=== PATIENT | female | born 1960 | race Caucasian/White ===

== ENCOUNTER 2018-04-03 06:53 | Inpatient (IN) | payer BC ==
--- NOTE | 2018-03-21 22:05 | HP ---
HISTORY AND PHYSICAL: DATE OF ADMISSION: 04/03/18 DATE OF OFFICE VISIT: 03/21/18 SURGEON: Sophie Aldridge MD * (DICTATED BY MIRANDA MCKEON) PROCEDURE: Left total knee arthroplasty. CHIEF COMPLAINT: Left knee pain. HISTORY OF PRESENT ILLNESS: Ms. Tabor is a 58-year-old female with end-stage osteoarthritis of the left knee. She has failed conservative treatment and elected to proceed with a left total knee arthroplasty. PAST MEDICAL HISTORY: History of lung cancer. PAST SURGICAL HISTORY: x2, wisdom teeth extraction, tonsillectomy, gastric sleeve, right lung lobectomy, and hernia repair. CURRENT MEDICATIONS: 1. Levocetirizine dihydrochloride 5 mg daily. 2. Vitamin D 2000 units daily. 3. Calcium. 4. Flintstones Multivitamin. 5. Clobetasol propionate 0.05%. ALLERGIES: To PENICILLIN, LATEX, ALEVE, and NICKEL. FAMILY HISTORY: Cancer. SOCIAL HISTORY: She is a 58-year-old female. She lives with her . She does not smoke or use drugs. Uses alcohol rarely. REVIEW OF SYSTEMS: A complete 14-point review of systems was reviewed with the patient, it was all negative or noncontributory. She denies any history of DVT , PE, hepatitis, HIV, or anesthesia problems. PHYSICAL EXAMINATION GENERAL: She is well developed, well nourished, in no acute distress. VITAL SIGNS: She stands 65 inches tall, weighs 240 pounds. Her blood pressure is 123/82 and her heart rate is 72. HEENT: Normocephalic, atraumatic. NECK: Supple. No palpable lymph nodes. PULMONARY: The lungs are clear to auscultation bilaterally. CARDIO: Regular rate and rhythm. Strong S1 and S2. ABDOMEN: Soft, nontender, and nondistended. NEUROLOGICAL: She is alert and oriented x3. MUSCULOSKELETAL: Left lower extremity, the skin is intact. There are no open wounds or abrasions. She has a moderate joint effusion. Range of motion is 10 to 125 degrees of flexion. She has 2+ dorsalis pedis pulse, intact sensation, and her lower extremity muscle group strengths are intact at 5/5. ASSESSMENT AND PLAN: Ms. Tabor is a 58-year-old female with end-stage osteoarthritis of the left knee. She has failed conservative treatment and elected to proceed with a left total knee arthroplasty, which is scheduled for 04/03/[address] Aldridge discussed the risks and benefits of surgery at today's visit and all of her questions were answered. She will follow up with Dr. Aldridge 2 weeks after the surgery. MIRANDA MCKEON [id number]/[facility] #: [id number] [facility]ITALMoustapha
[~2018-04-03 06:53] MED LIST: Tranexamic Acid 1,000 MG in NS 0.9% 50 ML* (outpatient use) IV SCH
[2018-04-03] MEDS ORDERED: Bupivacaine 0.5% SDV PF* 30ML VIAL ONE (06:54)
[2018-04-03] MEDS ORDERED: ROPIVACAINE 5 MG/ML 30 ML BTL (0.5%) ONE (06:54)
[2018-04-03] MEDS ORDERED: Propofol* 10 MG/ML 20 ML BTL IV PUSH ONE ×2 (06:54→10:41)
[2018-04-03] MEDS ORDERED: Lidocaine 2% PF * 5 ML VIAL ONE (06:54)
[2018-04-03] MEDS ORDERED: fentaNYL* 50 MCG/ML 2 ML VIAL (100 MCG VIAL) ONE (06:56)
[2018-04-03] MEDS ORDERED: Midazolam* 1 MG/ML 2 ML VIAL (2 MG) ONE ×3 (06:56→09:55)
[2018-04-03] MEDS ORDERED: KETAMINE HCL* 50 MG/ML 10 ML VIAL ONE (06:57)
--- OUTSIDE RECORDS SUMMARY | 2018-04-03 06:58 | XMS REPORT ---
:1960 External Reference #:[id number] Author Organization [employer] Address [address] [place] [address] [place] [address] Phone [phone] Care Team Providers Name Role Phone Marsha Marsh MD Primary Care Physician Unavailable Payers Type Date Identification Numbers Payment Provider Subscriber Health Maintenance Effective: Policy Number: [facility] Tj Marx (O) 05/27/2014 [id number] Expires: 05/26/2016 PayID: [id number] [address] [address] CongJEANNIE pantoja [address] Medigap Part B Policy Number: [id number] BS Facets Tj Tabor PayID: [id number] [address] [address] [place] [address] Problems Date Description Provider Status Onset: 05/14/2011 Morbid obesity Lily Doyle, N.P. Active Onset: 07/09/2011 Allergic rhinitis Lily Doyle, N.P. Active Onset: 07/09/2011 Asthma without status asthmaticus Lily Doyle, N.P. Active Onset: 07/22/2011 Impaired fasting glycaemia Lily Doyle, N.P. 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 Active Family History Date Family Member(s) Problem(s) Comments Father Prostate Cancer Smoker age 77 Mother Osteoporosis HTN age 80 Children 2 1 Son - Healthy age 29 1 Son - Healthy age 26 Siblings 6 3 Brothers - Healthy, 1 brother with prostate cancer at age 40 - doing well 3 Sisters - 1 Sister with diabetes but otherwise healthy, 1 Sister thyroid Cancer Social History Type Date Description Comments Marital Status Lives With Occupation [employer] ETOH Use Denies alcohol use Smoking Patient has never smoked Recreational Drug Use Denies Drug Use Exercise Type/Frequency Exercises regularly lifting light weights. ; still at [facility], Allergies, Adverse Reactions, Alerts Date Description Reaction Status Severity Comments 05/14/2011 Penicillins Hives active 05/14/2011 Aleve Bloody Nose active 06/14/2014 Latex active 11/03/2014 Nickel active Medications Medication Date Status Form Strength Qnty SIG Indications Ordering Provider Levocetirizine 06/14 Active Tablets 5mg 30tab 1 by mouth Lily Dihydrochloride s every day Varn, N.P. Vitamin D3 High Active Capsules 2000Units 1 by mouth Unknown Potency /0000 every day Calcium Chew Active 1200mg one by Unknown /0000 mouth every day Flintstones Active Chewtabs 60mg 2 by mouth Unknown Complete /0000 every day Clobetasol Active Cream 0.05% 60gm use on Lily Propionate / affected Varn, N.P. area 2x daily for 2 weeks then 2 week off Glucometer 04/16 Hx 1unit to use to E11. s test blood Varn, N.P. sugars Glucose Test 04/16 Hx 100un Test every E11. its am and 2 Varn, N.P. hrs after dinner Lancets 04/16 Hx 100un Test blood E11. its sugar Varn, N.P. every am and 2 hours after dinner Metformin HCL 04/16 Hx Tablets 500mg 30tab take 05/28 E11. s tablet by Varn, N.P. mouth at dinner for 1 week then boost to a full tablet Hydrocodone 04/05 Hx Solution 7.5-325mg 240ml 10ml-15ml Lily Bitartrate/Aceta /2015 /15ML by mouth B. 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 05/30 needed pain Zithromax Z-River 08/09 Hx Tablets 250mg 6tabs take as 461.8 directed MD Lucas - 08/31 Temovate 07/19 Hx Cream 0.05% 30gm apply twice Varn, N.P. daily as needed Ventolin HFA 07/09 Hx Aerosol 108(90Bas 1inha 1 to 2 493.90 Marsha e) mcg/ac ler inhalation Cotton, - s before M.D. 07/26 Azithromycin 05/14 Hx Tablets 250mg 6tabs two tabs 461.9 Marsha day one, Cotton, - one daily M.D. 05/24 till Fluticasone 05/14 Hx Suspension 50mcg/Act 1Mont 1 spray 461.9 Marsha h each Cotton, - nostril M.D. 05/28 daily needed Alavert Hx Tablets 10mg once daily Unknown /0000 as needed - 06/14 Advil Allergy Hx Tablets 200mg once daily Unknown Sinus /0000 as needed - 06/14 Centrum Flavor Hx Chewtabs 2 daily Unknown Burst /0000 Vitamin B 12 Hx Lozenges 500mcg by mouth Unknown /0000 every day Medications Administered in Office Medication Date Status Form Strength Qnty SIG Indications Ordering Provider Synvisc Or Administered Injection Sophie Synvisc-One Tom Aldridge M.D. Injection 1 MG Synvisc Or Administered Injection Sophie Synvisc-One Tom Aldridge M.D. Injection 1 MG Synvisc Or Administered Injection Sophie Synvisc-One 018 Tacos Aldridge Injection 1 MG Synvisc Or Administered Injection Sophie Synvisc-One 018 Tacos Aldridge Injection 1 MG Synvisc Or Administered Injection Sophie Synvisc-One Tom Aldridge M.D. Injection 1 MG Synvisc Or Administered Injection Sophie Synvisc-One 018 Bharati Aldridge. Injection 1 MG Synvisc Or Administered Injection Zaneb Synvisc-One 017 MD Dinora Injection 1 MG Synvisc Or Administered Injection Zaneb Synvisc-One 017 MD Dinora Injection 1 MG Synvisc Or Administered Injection Sophie Synvisc-One 017 Carissa AldridgeDServando Injection 1 MG Synvisc Or Administered Injection Sophie Synvisc-One 017 Yamilet Aldridge.DServando Injection 1 MG Synvisc Or Administered Injection Sophie Synvisc-One 017 Yamilet Aldridge.Moustapha. Injection 1 MG Synvisc Or Administered Injection Sophie Synvisc-One Brandi Aldridge M.D. Injection 1 MG Synvisc Or Administered Injection Sophie Synvisc-One 016 Tacos Aldridge Injection 1 MG Synvisc Or Administered Injection Sophie Synvisc-One Yamilet Bhagat.Tito Injection 1 MG Synvisc Or Administered Injection Sophie Synvisc-One Yamilet Bhagat.Tito Injection 1 MG Synvisc Or Administered Injection Sophie Synvisc-One Carissa BhagatDServando Injection 1 MG Synvisc Or Administered Injection Sophie Synvisc-One Yamilet Bhagat.Tito Injection 1 MG Synvisc Or Administered Injection Sophie Synvisc-One 016 Yamilet Aldridge.DServando Injection 1 MG Synvisc Or Administered Injection Sophie Synvisc-One Yamilet Bhagat.D. Injection 1 MG Synvisc Or Administered Injection Sophie Synvisc-One 016 Yamilet Aldridge.D. Injection 1 MG Synvisc Or Administered Injection Sophie Synvisc-One 016 Yamilet Aldridge.D. Injection 1 MG Synvisc Or Administered Injection Sophie Synvisc-One 016 Yamilet Aldridge.D. Injection 1 MG Synvisc Or Administered Injection Renata Synvisc-One 016 Bordoni, POLYMERIZATION KETTLE OPERATOR Injection 1 MG Synvisc Or Administered Injection Renata Synvisc-One 016 Bordoni, POLYMERIZATION KETTLE OPERATOR Injection 1 MG Depomedrol Administered Injection Sophie 80MG 015 Tacos Aldridge Depomedrol Administered Injection Sophie 80MG 015 Tacos Aldridge Immunizations CPT Code Status Date Vaccine Lot # [id number] Given 03/07/2018 Influenza Virus Vaccine, Quadrivalent, Split, [id number] Preservative Free 08773 Given 03/02/2017 Influenza Virus Vaccine, Quadrivalent, Split, Preservative Free [id number] Given 12/21/2016 Tdap - Tetanus/Diptheria/Acellular Pertussis [id number] Given 03/21/2016 Flu Vaccine NOS Q2037 Given 03/04/2015 Fluvirin Im 3Yrs And Older Q2037 Given 08/09/2014 Fluvirin Im 3Yrs And Older [id number] Given 04/05/2009 Tdap - Tetanus/Diptheria/Acellular Pertussis Vital Signs Date Vital Result Comment 03/21/2018 Height 64.5 inches 5'4.50" Weight 241.00 lb BP Systolic 123 mmHg BP Diastolic 82 mmHg Respiratory Rate 16 /min Pain Level 2 BMI (Body Mass Index) 40.7 kg/m2 03/07/2018 Height 64.5 inches 5'4.50" Weight 244.00 lb Heart Rate 68 /min BP Systolic 122 mmHg BP Diastolic 74 mmHg Body Temperature 98.2 F O2 % BldC Oximetry 97 % BMI (Body Mass Index) 41.2 kg/m2 11/01/2017 Height 64.5 inches 5'4.50" Weight 231.00 lb Heart Rate 68 /min BP Systolic Sitting 114 mmHg BP Diastolic Sitting 78 mmHg Respiratory Rate 16 /min Body Temperature 98.3 F Pain Level 3 BMI (Body Mass Index) 39.0 kg/m2 10/25/2017 Height 64.5 inches 5'4.50" Weight 231.00 lb BP Systolic 123 mmHg BP Diastolic 82 mmHg Respiratory Rate 16 /min Pain Level 2 BMI (Body Mass Index) 39.0 kg/m2 10/18/2017 Height 64.5 inches 5'4.50" Weight 231.00 lb BP Systolic 124 mmHg BP Diastolic 70 mmHg Respiratory Rate 18 /min Pain Level 2 BMI (Body Mass Index) 39.0 kg/m2 09/23/2017 Height 64.5 inches 5'4.50" Weight 231.00 lb BP Systolic 120 mmHg BP Diastolic 82 mmHg Body Temperature 97.9 F BMI (Body Mass Index) 39.0 kg/m2 07/04/2017 Weight 224.00 lb Heart Rate 83 /min BP Systolic Sitting 140 mmHg BP Diastolic Sitting 95 mmHg Body Temperature 99.2 F O2 % BldC Oximetry 98 % 02/07/2017 Height 64 inches 5'4" Weight 234.00 lb Heart Rate 72 /min BP Systolic 124 mmHg BP Diastolic 72 mmHg Respiratory Rate 18 /min Body Temperature 98.6 F BMI (Body Mass Index) 40.2 kg/m2 11/08/2016 Height 64 inches 5'4" Weight 236.00 lb Heart Rate 86 /min BP Systolic 142 mmHg BP Diastolic 92 mmHg Respiratory Rate 16 /min Body Temperature 98.1 F BMI (Body Mass Index) 40.5 kg/m2 10/12/2016 Height 64 inches 5'4" Weight 238.00 lb Heart Rate 66 /min BP Systolic Sitting 114 mmHg BP Diastolic Sitting 84 mmHg Body Temperature 97.1 F O2 % BldC Oximetry 99 % BMI (Body Mass Index) 40.8 kg/m2 10/04/2016 Height 64 inches 5'4" Weight 240.00 lb Heart Rate 77 /min BP Systolic 132 mmHg BP Diastolic 85 mmHg Respiratory Rate 16 /min Pain Level 2 BMI (Body Mass Index) 41.2 kg/m2 09/28/2016 Height 64 inches 5'4" Weight 240.00 lb BP Systolic 128 mmHg BP Diastolic 88 mmHg Body Temperature 98.4 F BMI (Body Mass Index) 41.2 kg/m2 09/21/2016 Height 64.3 inches 5'4.30" Weight 251.00 lb Heart Rate 71 /min BP Systolic 130 mmHg BP Diastolic 74 mmHg Body Temperature 98.0 F BMI (Body Mass Index) 42.7 kg/m2 08/13/2016 Height 64.3 inches 5'4.30" Weight 251.00 lb Heart Rate 71 /min BP Systolic 143 mmHg BP Diastolic 87 mmHg Body Temperature 97.5 F Pain Level 3 BMI (Body Mass Index) 42.7 kg/m2 08/09/2016 Height 64.5 inches 5'4.50" Weight 252.00 lb Heart Rate 90 /min BP Systolic 128 mmHg BP Diastolic 90 mmHg Respiratory Rate 16 /min Body Temperature 98.1 F BMI (Body Mass Index) 42.6 kg/m2 05/30/2016 Height 64.5 inches 5'4.50" Weight 272.00 lb Heart Rate 78 /min BP Systolic 118 mmHg BP Diastolic 80 mmHg Respiratory Rate 18 /min Body Temperature 97.9 F BMI (Body Mass Index) 46.0 kg/m2 05/03/2016 Height 64.5 inches 5'4.50" Weight 280.00 lb Heart Rate 62 /min BP Systolic Sitting 150 mmHg BP Diastolic Sitting 88 mmHg Respiratory Rate 18 /min Body Temperature 98.0 F BMI (Body Mass Index) 47.3 kg/m2 04/17/2016 Height 64.5 inches 5'4.50" Weight 297.00 lb Heart Rate 92 /min BP Systolic Sitting 139 mmHg BP Diastolic Sitting 77 mmHg Respiratory Rate 16 /min O2 % BldC Oximetry 96 % BMI (Body Mass Index) 50.2 kg/m2 04/16/2016 Weight 297.00 lb Heart Rate 82 /min BP Systolic Sitting 130 mmHg BP Diastolic Sitting 84 mmHg Respiratory Rate 15 /min Body Temperature 98.2 F O2 % BldC Oximetry 98 % 04/05/2016 Height 64 inches 5'4" Weight 305.00 lb Heart Rate 62 /min BP Systolic Sitting 142 mmHg BP Diastolic Sitting 82 mmHg Respiratory Rate 18 /min Body Temperature 98.3 F BMI (Body Mass Index) 52.3 kg/m2 12/02/2015 Height 64 inches 5'4" Weight 295.00 lb Body Temperature 98.4 F Pain Level 1 BMI (Body Mass Index) 50.6 kg/m2 11/25/2015 Height 64 inches 5'4" Weight 295.00 lb Pain Level 4 BMI (Body Mass Index) 50.6 kg/m2 11/18/2015 Height 64 inches 5'4" Weight 295.00 lb Pain Level 3 BMI (Body Mass Index) 50.6 kg/m2 06/22/2015 Height 64 inches 5'4" Weight 295.00 lb Pain Level 1 BMI (Body Mass Index) 50.6 kg/m2 06/10/2015 Height 64 inches 5'4" Weight 295.00 lb Pain Level 4 BMI (Body Mass Index) 50.6 kg/m2 05/09/2015 Height 64 inches 5'4" Weight 295.00 lb Pain Level 8 BMI (Body Mass Index) 50.6 kg/m2 03/10/2015 Height 64 inches 5'4" Weight 295.00 lb Pain Level 6 BMI (Body Mass Index) 50.6 kg/m2 11/03/2014 Heart Rate 96 /min BP Systolic Sitting 126 mmHg BP Diastolic Sitting 70 mmHg Respiratory Rate 20 /min O2 % BldC Oximetry 97 % 09/01/2014 Heart Rate 108 /min BP Systolic Sitting 142 mmHg BP Diastolic Sitting 78 mmHg Respiratory Rate 20 /min O2 % BldC Oximetry 98 % 08/09/2014 Height 64.5 inches 5'4.50" Weight 295.00 lb Heart Rate 95 /min BP Systolic Sitting 138 mmHg BP Diastolic Sitting 72 mmHg Respiratory Rate 20 /min O2 % BldC Oximetry 97 % BMI (Body Mass Index) 49.8 kg/m2 Neck Circumference in inches 18.5 07/28/2014 Height 64 inches 5'4" Weight 291.00 lb Pain Level 3 BMI (Body Mass Index) 49.9 kg/m2 07/26/2014 Height 64 inches 5'4" Weight 296.00 lb Heart Rate 80 /min BP Systolic 145 mmHg BP Diastolic 90 mmHg Body Temperature 98.4 F BMI (Body Mass Index) 50.8 kg/m2 07/12/2014 Height 64 inches 5'4" Weight 291.00 lb BP Systolic 153 mmHg BP Diastolic 91 mmHg BMI (Body Mass Index) 49.9 kg/m2 06/14/2014 Height 64.5 inches 5'4.50" Weight 300.00 lb Heart Rate 105 /min BP Systolic Sitting 142 mmHg BP Diastolic Sitting 84 mmHg Body Temperature 97.5 F BMI (Body Mass Index) 50.7 kg/m2 01/13/2014 Height 64.25 inches 5'4.25" Weight 299.50 lb Heart Rate 72 /min BP Systolic Sitting 140 mmHg BP Diastolic Sitting 80 mmHg BMI (Body Mass Index) 51.0 kg/m2 09/13/2011 Height 64.25 inches 5'4.25" Weight 280.25 lb Heart Rate 72 /min BP Systolic Sitting 130 mmHg BP Diastolic Sitting 80 mmHg BMI (Body Mass Index) 47.7 kg/m2 07/09/2011 Height 64.25 inches 5'4.25" Weight 289.00 lb Heart Rate 80 /min BP Systolic Sitting 108 mmHg BP Diastolic Sitting 72 mmHg BMI (Body Mass Index) 49.2 kg/m2 05/14/2011 Height 64.25 inches 5'4.25" Weight 289.00 lb Heart Rate 102 /min BP Systolic Sitting 120 mmHg BP Diastolic Sitting 90 mmHg Body Temperature 99.0 F Oral BMI (Body Mass Index) 49.2 kg/m2 Results Test Date Test Result H/L Range Note Laboratory test finding 10/25/2017 Cytology SEE RESULT BELOW 1, 2 Lipid Profile 10/08/2017 Triglycerides 136 mg/dL 3 (Trig/Chol/HDL) Cholesterol 168 mg/dL 4 HDL Cholesterol 49.6 mg/dL 5 LDL Cholesterol 91 mg/dL 6 Laboratory test finding 10/08/2017 Hemoglobin A1c (Glyco HGB) 5.6 % 4.0- 5.6 7 Vitamin B12 658 pg/mL 180-914 8 Vitamin D Total 25(Oh) 21.1 ng/mL 20-50 9 Ferritin 21.9 ng/mL 11-307 10 CBC Auto Diff 10/08/2017 White Blood Count 6.9 10^3/uL 3.5-10.8 Red Blood Count 4.84 10^6/uL 4.0-5.4 Hemoglobin 14.1 g/dL 12.0-16.0 Hematocrit 42 % 35-47 Mean Corpuscular Volume 86 fL 80-97 Mean Corpuscular Hemoglobin 29 pg 27-31 Mean Corpuscular HGB Conc 34 g/dL 31-36 Red Cell Distribution Width 14 % 10.5-15 Platelet Count 225 10^3/uL 150-450 Mean Platelet Volume 10.6 um3 High 7.4-10.4 Abs Neutrophils 3.9 10^3/uL 1.5-7.7 Abs Lymphocytes 2.0 10^3/uL 1.0-4.8 Abs Monocytes 0.5 10^3/uL 0-0.8 Abs Eosinophils 0.4 10^3/uL 0-0.6 Abs Basophils 0.1 10^3/uL 0-0.2 Abs Nucleated RBC 0 10^3/uL Granulocyte % 56.7 % 38-83 Lymphocyte % 29.4 % 25-47 Monocyte % 7.1 % High 0-7 Eosinophil % 6.1 % High 0-6 Basophil % 0.7 % 0-2 Nucleated Red Blood Cells % 0.1 Comp Metabolic Panel 10/08/2017 Sodium 141 mmol/L 139-145 Potassium 3.8 mmol/L 3.5-5.0 Chloride 104 mmol/L 101-111 Co2 Carbon Dioxide 28 mmol/L 22-32 Anion Gap 9 mmol/L 2-11 Glucose 105 mg/dL High 70-100 Blood Urea Nitrogen 13 mg/dL 6-24 Creatinine 0.59 mg/dL 0.51-0.95 BUN/Creatinine Ratio 22.0 High 8-20 Calcium 9.2 mg/dL 8.6-10.3 Total Protein 6.5 g/dL 6.4-8.9 Albumin 4.0 g/dL 3.2-5.2 Globulin 2.5 g/dL 2-4 Albumin/Globulin Ratio 1.6 1-3 Total Bilirubin 1.00 mg/dL 0.2-1.0 Alkaline Phosphatase 109 U/L High 34-104 Alt 14 U/L 7-52 Ast 13 U/L 13-39 Egfr Non- 105.1 >60 Egfr 135.1 >60 11 Iron & Iron Binding Capacity 10/08/2017 Iron 103 g/dL 50-212 12 Unsaturated Iron Binding 274 g/dL 12 Total Iron Binding Capacity 377 g/dL 250-450 12 Transferrin 269 mg/dL 203-362 12 % Iron Saturation 27 % 15-55 12 Laboratory test finding 10/08/2017 Folic Acid (Folate) > 20.00 ng/mL > 3.99 12, 13 Vitamin B1 (Whole Blood) 151 nmol/L 70-180 12, 14 Vitamin E Level 10.6 mg/L 5.5 - 17.0 12, 15 Bariatric Panel Post Op 11/05/2016 Ferritin 23.0 ng/mL 11-307 Vitamin B12 > 1450 pg/mL High 180-914 16 Folic Acid (Folate) > 20.00 ng/mL >3.99 Vitamin D Total 25(Oh) 25.8 ng/mL Low 30-50 Vitamin B1 (Whole Blood) 138 nmol/L 70-180 17 Vitamin E Level 10.0 mg/L 5.5 - 17.0 18 Comp Metabolic Panel 11/05/2016 Sodium 137 mmol/L 133-145 Potassium 4.2 mmol/L 3.5-5.0 Chloride 106 mmol/L 101-111 Co2 Carbon Dioxide 28 mmol/L 22-32 Anion Gap 3 mmol/L 2-11 Glucose 104 mg/dL High 70-100 Blood Urea Nitrogen 11 mg/dL 6-24 Creatinine 0.56 mg/dL 0.51-0.95 BUN/Creatinine Ratio 19.6 8-20 Calcium 8.8 mg/dL 8.6-10.3 Total Protein 6.2 g/dL Low 6.4-8.9 Albumin 3.7 g/dL 3.2-5.2 Globulin 2.5 g/dL 2-4 Albumin/Globulin Ratio 1.5 1-3 Total Bilirubin 1.20 mg/dL High 0.2-1.0 Alkaline Phosphatase 107 U/L High 34-104 Alt 13 U/L 7-52 Ast 15 U/L 13-39 Egfr Non- 112.0 >60 Egfr 144.0 >60 19 CBC Auto Diff 11/05/2016 White Blood Count 8.6 10^3/uL 3.5-10.8 Red Blood Count 5.06 10^6/uL 4.0-5.4 Hemoglobin 13.9 g/dL 12.0-16.0 Hematocrit 43 % 35-47 Mean Corpuscular Volume 85 fL 80-97 Mean Corpuscular Hemoglobin 27 pg 27-31 Mean Corpuscular HGB Conc 32 g/dL 31-36 Red Cell Distribution Width 15 % 10.5-15 Platelet Count 216 10^3/uL 150-450 Mean Platelet Volume 11 um3 High 7.4-10.4 Abs Neutrophils 5.3 10^3/uL 1.5-7.7 Abs Lymphocytes 2.2 10^3/uL 1.0-4.8 Abs Monocytes 0.6 10^3/uL 0-0.8 Abs Eosinophils 0.4 10^3/uL 0-0.6 Abs Basophils 0.1 10^3/uL 0-0.2 Abs Nucleated RBC 0.03 10^3/uL Granulocyte % 62.2 % 38-83 Lymphocyte % 25.1 % 25-47 Monocyte % 6.8 % 1-9 Eosinophil % 5.0 % 0-6 Basophil % 0.9 % 0-2 Nucleated Red Blood Cells % 0.3 Iron & Iron Binding Capacity 11/05/2016 Iron 80 g/dL 50-212 Unsaturated Iron Binding 270 g/dL Total Iron Binding Capacity 350 g/dL 250-450 % Iron Saturation 23 % 15-55 Lipid Profile (Trig/Chol/HDL) 10/05/2016 Triglycerides 107 mg/dL 20 Cholesterol 146 mg/dL 21 HDL Cholesterol 39.3 mg/dL 22 LDL Cholesterol 85 mg/dL 23 Laboratory test 04/25/2016 Surgical Pathology SEE RESULT BELOW 24 finding Laboratory test 04/16/2016 Hemoglobin A1c 7.6 High 5-7 finding CBC No Diff 04/05/2016 White Blood Count 11.1 10^3/uL High 3.5-10.8 Red Blood Count 5.14 10^6/uL 4.0-5.4 Hemoglobin 14.3 g/dL 12.0-16.0 Hematocrit 44 % 35-47 Mean Corpuscular Volume 85 fL 80-97 Mean Corpuscular Hemoglobin 28 pg 27-31 Mean Corpuscular HGB Conc 33 g/dL 31-36 Red Cell Distribution Width 14 % 10.5-15 Platelet Count 276 10^3/uL 150-450 Mean Platelet Volume 10 um3 7.4-10.4 Basic Metabolic Panel 04/05/2016 Sodium 135 mmol/L 133-145 Potassium 4.4 mmol/L 3.5-5.0 Chloride 99 mmol/L Low 101-111 Co2 Carbon Dioxide 29 mmol/L 22-32 Anion Gap 7 mmol/L 2-11 Glucose 201 mg/dL High 70-100 Blood Urea Nitrogen 12 mg/dL 6-24 Creatinine 0.73 mg/dL 0.51-0.95 BUN/Creatinine Ratio 16.4 8-20 Calcium 9.3 mg/dL 8.6-10.3 Egfr Non- 82.5 >60 Egfr 106.1 >60 25 Type & Screen 07/29/2014 Patient Blood Type O Positive Antibody Screen NEGATIVE Comp Metabolic Panel 07/29/2014 Sodium 135 mmol/L 133-145 Potassium 4.6 mmol/L 3.5-5.0 Chloride 97 mmol/L Low 101-111 Co2 Carbon Dioxide 30 mmol/L 22-32 Anion Gap 8 mmol/L 2-11 Glucose 99 mg/dL 70-100 Blood Urea Nitrogen 17 mg/dL 6-24 Creatinine 0.71 mg/dL 0.51-0.95 BUN/Creatinine Ratio 23.9 High 8-20 Calcium 9.8 mg/dL 8.6-10.3 Total Protein 7.0 g/dL 6.4-8.9 Albumin 4.3 g/dL 3.2-5.2 Globulin 2.7 g/dL 2-4 Albumin/Globulin Ratio 1.6 1-3 Total Bilirubin 1.00 mg/dL 0.2-1.0 Alkaline Phosphatase 108 U/L High 34-104 Alt 23 U/L 7-52 Ast 20 U/L 13-39 Egfr Non- 85.8 >60 Egfr 110.3 >60 26 CBC No Diff 07/29/2014 White Blood Count 12.9 10^3/uL High 4.8-10.8 Red Blood Count 5.35 10^6/uL 4.0-5.4 Hemoglobin 15.2 g/dL 12.0-16.0 Hematocrit 47 % 35-47 Mean Corpuscular Volume 87 fL 80-97 Mean Corpuscular Hemoglobin 28 pg 27-31 Mean Corpuscular HGB Conc 33 g/dL 31-36 Red Cell Distribution Width 15 % 10.5-15 Platelet Count 265 10^3/uL 150-450 Mean Platelet Volume 10 um3 7.4-10.4 Lipid Profile (Trig/Chol/HDL) 07/29/2014 Triglycerides 94 mg/dL 27 Cholesterol 187 mg/dL 28 HDL Cholesterol 45.1 mg/dL 29 LDL Cholesterol 123 mg/dL 30 Laboratory test finding 06/14/2014 Cytology RUN DATE: 06/15/ <SEE NOTE> 31 Human Papilloma Virus Rna Negative Negative 32 Clotest 04/29/2014 Clotest (SEE NOTE) 33 Vitamin D, 25 Hydroxy 01/04/2014 25-Hydroxy Vitamin D2 <4.0 ng/mL 12 25-Hydroxy Vitamin D3 29 ng/mL 12 25-Hydroxy Vitamin D Total 29 ng/mL 12, 34 Laboratory test finding 01/04/2014 Vitamin B1 Whole Blood 130 nmol/L 70- 180 12, 35 Vitamin E Level 10.9 mg/L 5.5 - 17.0 12, 36 Laboratory test finding 01/04/2014 Ferritin 27.7 ng/mL 11-307 12, 37 Vitamin B12 302 pg/mL 180-914 12, 38 Folate > 20.00 ng/mL >3.99 12, 39 TSH (Thyroid Stimulating Horm) 2.12 IU/mL 0.34-5.60 12, 40 Cortisol 16.65 g/dL 12, 41 Iron & Iron Binding Capacity 01/04/2014 Iron 62 g/dL 50-212 12 Unsaturated Iron Binding 350 g/dL 12 Total Iron Binding Capacity 412 g/dL 250-450 12 % Iron Saturation 15 % 15-55 12 Comp Metabolic Panel 01/04/2014 Sodium 136 mmol/L 133-145 12 Potassium 3.8 mmol/L 3.7-5.6 12 Chloride 101 mmol/L 101-111 12 Co2 Carbon Dioxide 28 mmol/L 22-32 12 Anion Gap 7 mmol/L 2-11 12 Glucose 130 mg/dL High 70-100 12 Blood Urea Nitrogen 14 mg/dL 6-24 12 Creatinine 0.63 mg/dL 0.51-0.95 12 BUN/Creatinine Ratio 22.2 High 8-20 12 Calcium 9.1 mg/dL 8.6-10.3 12 Total Protein 7.5 g/dL 6.4-8.9 12 Albumin 4.0 g/dL 3.2-5.2 12 Globulin 3.5 g/dL 2-4 12 Albumin/Globulin Ratio 1.1 1-3 12 Total Bilirubin 0.80 mg/dL 0.2-1.0 12 Alkaline Phosphatase 103 U/L 34-104 12 Alt 18 U/L 7-52 12 Ast 13 U/L 13-39 12 Egfr Non- 98.8 >60 12 Egfr 127.1 >60 12, 42 CBC Auto Diff 01/04/2014 White Blood Count 9.7 10^3/uL 4.8-10.8 12 Red Blood Count 5.06 10^6/uL 4.0-5.4 12 Hemoglobin 14.2 g/dL 12.0-16.0 12 Hematocrit 43 % 35-47 12 Mean Corpuscular Volume 84 fL 80-97 12 Mean Corpuscular Hemoglobin 28 pg 27-31 12 Mean Corpuscular HGB Conc 33 g/dL 31-36 12 Red Cell Distribution Width 14 % 10.5-15 12 Platelet Count 277 10^3/uL 150-450 12 Mean Platelet Volume 10 um3 7.4-10.4 12 Abs Neutrophils 6.5 10^3/uL 1.5-7.7 12 Abs Lymphocytes 2.1 10^3/uL 1.0-4.8 12 Abs Monocytes 0.5 10^3/uL 0-0.8 12 Abs Eosinophils 0.4 10^3/uL 0-0.6 12 Abs Basophils 0.1 10^3/uL 0-0.2 12 Abs Nucleated RBC 0.01 10^3/uL 12 Granulocyte % 67.3 % 38-83 12 Lymphocyte % 22.1 % Low 25-47 12 Monocyte % 5.5 % 1-9 12 Eosinophil % 4.5 % 0-6 12 Basophil % 0.6 % 0-2 12 Nucleated Red Blood Cells % 0.1 12 Laboratory test finding 09/11/2011 Hemoglobin A1c 6.1 % High Less Than 6.0 43 Comp Metabolic Panel 07/19/2011 Sodium 135 mmol/L 135-145 Potassium 4.3 mmol/L 3.5-5.0 Chloride 101 mmol/L 101-111 Co2 (Carbon Dioxide) 27.0 mmol/L 22-32 Anion Gap 7.0 mmol/L 2-11 44 Glucose 120 mg/dL High 70-100 BUN 14 mg/dL 6-24 Creatinine 0.6 mg/dL 0.50-1.40 One Over Creatinine 1.66 BUN/Creatinine Ratio 23.3 High 8-20 Calcium 8.8 mg/dL 8.1-9.9 Total Protein 6.4 GM/DL 6.2-8.1 Albumin 3.7 GM/DL 3.6-5.4 Globulin 2.7 GM/DL 2-4 Albumin/Globulin Ratio 1.4 1-3 Bilirubin Total 1.0 mg/dL 0.4-1.5 45 Alkaline Phosphatase 107 U/L 30-110 Alt (SGPT) 20 U/L 14-54 Ast (Sgot) 15 U/L 12-42 eGFR Non- 105.4 > 60 eGFR 135.5 > 60 46 Lipid Profile (Trig/Chol/HDL) 07/19/2011 Triglyceride 188 mg/dL 40-200 Cholesterol 180 mg/dL Less Than 200 47 High Density Lipoprotein 32 mg/dL Low 40-60 48 Cholesterol/HDL Ratio 5.63 AVERAGE High 1-4.44 Low Density Lipoprotein 110 mg/dL High Less Than 100 49 Laboratory test finding 07/19/2011 TSH 1.66 MIU/ML 0.34-5.60 Laboratory test finding 07/09/2011 Cytology <SEE 50 NOTE> Urine Culture & Sensitivi 05/14/2011 M <SEE 51 NOTE> 1 [id number] 2 SEE RESULT BELOW Name: TJ TABOR : [address]: Lily Doyle NP Acct: [id number] Unit: [id number] AGE: 57 Location: [facility] Re10/25/17 SEX: F Status: REG REF SPEC: [id number] JANICE: 10/25/17-[address]: Lily Doyle NP REQ: [id number] RECD: 10/25/17 STATUS: SOUT _ ORDERED: TP IMAGE ANALYS, HPV/Thin Prep, HPV 16/18 GENE COMMENTS: [id number] Negative for Intraepithelial lesion or Malignancy A. Ectocervical/Endocervical Specimen Adequacy: Satisfactory of evaluation Transformation zone component identified Patient Information: HPV: High risk HPV RNA testing regardless of pap results. HPV 16/18 Genotype Reflex Actual Specimen Date: 10/25/17 LMP If Unknown: 02/2017 Spec Date if unknown: 05/2014 ?: N Post Menopausal?: Y Hysterectomy?: N Previous Abnormal Pap Smears?:N Date Time Test Result Flag (u) Normal Range 10/25/17 1526 @ HPV RNA Negative Negative @ @ The high-risk HPV types detected by the assay include: 16, @ 18, 31, 33, 35, 39, 45, 51, 52, 56, 58, 59, 66, and 68. Signed by and Reported on: SCHUYLER Burgos(ASC) [id number] This Pap test was evaluated with the assistance of the Element WorksPrep Test Imaging System. Due to cytologic findings at the mold holder microscope, comprehensive manual rescreening by a Platform Architect may be required. The Pap Smear is a screening test designed to aid in the detection of premalignant and malignant conditions of the uterine cervix. It is not a diagnostic procedure and should not be used as the sole means of detecting cervical cancer. Both false- positive and false- negative reports do occur. Depending on your risk status, a Pap smear should be obtained and evaluated every 1-3 years. END OF REPORT DEPARTMENT OF PATHOLOGY, [address] [place] [address] Nick Cuhrch M.D. Director [facility] # [id number] 3 Desirable: <150 Borderline High: 150-199 High: 200-499 Very High: >500 4 Desirable: <200 Borderline High: 200-239 High: >239 5 Low: <40 Desirable: 40-60 High: >60 6 Desirable: <100 Near Optimal: 100-129 Borderline High: 130-159 High: 160-189 Very High: >189 7 Therapeutic target for the treatment of diabetes mellitus patients is <7% HBA1C, and in selective patients <6.0%. Please refer to [place] [employer] diabetic care guidelines for further information. 8 Normal Range 180 to 914 Indeterminate Range 145 to 180 Deficient Range <145 9 FASTING 10 HOUR 10 FASTING 10 HOUR 11 Because ethnic data is not always readily available, this report includes an eGFR for both -Americans and non- Americans. The National Kidney Disease Education Program (NKDEP) does not endorse the use of the MDRD equation for patients that are not between the ages of 18 and 70, are , have extremes of body size, muscle mass, or nutritional status, or are non- or non-. According to the National Kidney Foundation, irrespective of diagnosis, the stage of the disease is based on the level of kidney function: Stage Description GFR(mL/min/1.73 m(2)) 1 Kidney damage with normal or decreased GFR 90 2 Kidney damage with mild decrease in GFR 60-89 3 Moderate decrease in GFR 30-59 4 Severe decrease in GFR 15-29 5 Kidney failure <15 (or dialysis) 12 FASTING 13 FASTING 14 ADDITIONAL INFORMATION This test was developed and its performance characteristics determined by [facility] in a manner consistent with CLIA requirements. This test has not been cleared or approved by the U.S. Food and Drug Administration. Test Performed by: [facility] [employer] - [address] [address] 15 ADDITIONAL INFORMATION This test was developed and its performance characteristics determined by [facility] in a manner consistent with CLIA requirements. This test has not been cleared or approved by the U.S. Food and Drug Administration. Test Performed by: [place] [address] 16 Normal Range 180 to 914 Indeterminate Range 145 to 180 Deficient Range <145 17 ADDITIONAL INFORMATION This test was developed and its performance characteristics determined by [facility] in a manner consistent with CLIA requirements. This test has not been cleared or approved by the U.S. Food and Drug Administration. Test Performed by: [facility] [employer] - [place] [facility] [address] [place] [address] 18 ADDITIONAL INFORMATION This test was developed and its performance characteristics determined by [facility] in a manner consistent with CLIA requirements. This test has not been cleared or approved by the U.S. Food and Drug Administration. Test Performed by: [facility] [place] [employer] [address] [place] [id number] 19 Because ethnic data is not always readily available, this report includes an eGFR for both -Americans and non- Americans. The National Kidney Disease Education Program (NKDEP) does not endorse the use of the MDRD equation for patients that are not between the ages of 18 and 70, are , have extremes of body size, muscle mass, or nutritional status, or are non- or non-. According to the National Kidney Foundation, irrespective of diagnosis, the stage of the disease is based on the level of kidney function: Stage Description GFR(mL/min/1.73 m(2)) 1 Kidney damage with normal or decreased GFR 90 2 Kidney damage with mild decrease in GFR 60-89 3 Moderate decrease in GFR 30-59 4 Severe decrease in GFR 15-29 5 Kidney failure <15 (or dialysis) 20 Desirable <150 Borderline high 150-199 High 200-499 Very High >500 21 Desirable <200 Borderline high 200-239 High >239 22 Low <40 Desirable: 40-60 High: >60 23 Desirable: <100 mg/dL Near Optimal: 100-129 mg/dL Borderline High: 130-159 mg/dL High: 160-189 mg/dL Very High: >189 mg/dL 24 SEE RESULT BELOW Name: TJ TABOR : [address]: Edenilson Hope MD Acct: [id number] Unit: [id number] AGE: 56 Location: [facility]- Re04/25/16 SEX: F Status: ADM IN SPEC: [id number] JANICE: 04/25/16- SUBM DR: Edenilson Hope MD REQ: [id number] RECD: 04/25/16 STATUS: SOUT _ ORDERED: LEVEL V FINAL DIAGNOSIS Portion of stomach, resection: -- Segment of stomach with fundic gland mucosa with patchy chronic inflammation and passive vascular congestion. PRE-OPERATIVE DIAGNOSIS Morbid obesity GROSS DESCRIPTION The specimen is received in formalin labeled, Portion of Stomach, and consists of an 18.4 x 4.6 x 4.1 cm portion of gastric tissue. The serosa is predominantly smooth bell-pink with scant adherent yellow fat and a prominent staple line. The mucosa is glistening bell-pink with normal rugal folds. Manager Winter sections, one cassette. Signed (signature on file) Nick Church MD 1206 END OF REPORT * ML=Testing performed at Main Lab DEPARTMENT OF PATHOLOGY, [address] [place] [address] Nick Church M.D. Director [facility] # [id number] 25 Because ethnic data is not always readily available, this report includes an eGFR for both -Americans and non- Americans. The National Kidney Disease Education Program (NKDEP) does not endorse the use of the MDRD equation for patients that are not between the ages of 18 and 70, are , have extremes of body size, muscle mass, or nutritional status, or are non- or non-. According to the National Kidney Foundation, irrespective of diagnosis, the stage of the disease is based on the level of kidney function: Stage Description GFR(mL/min/1.73 m(2)) 1 Kidney damage with normal or decreased GFR 90 2 Kidney damage with mild decrease in GFR 60-89 3 Moderate decrease in GFR 30-59 4 Severe decrease in GFR 15-29 5 Kidney failure <15 (or dialysis) 26 Because ethnic data is not always readily available, this report includes an eGFR for both -Americans and non- Americans. The National Kidney Disease Education Program (NKDEP) does not endorse the use of the MDRD equation for patients that are not between the ages of 18 and 70, are , have extremes of body size, muscle mass, or nutritional status, or are non- or non-. According to the National Kidney Foundation, irrespective of diagnosis, the stage of the disease is based on the level of kidney function: Stage Description GFR(mL/min/1.73 m(2)) 1 Kidney damage with normal or decreased GFR 90 2 Kidney damage with mild decrease in GFR 60-89 3 Moderate decrease in GFR 30-59 4 Severe decrease in GFR 15-29 5 Kidney failure <15 (or dialysis) 27 Desirable <150 Borderline high 150-199 High 200-499 Very High >500 28 Desirable <200 Borderline high 200-239 High >239 29 Low <40 Desirable: 40-60 High: >60 30 Desirable: <100 mg/dL Near Optimal: 100-129 mg/dL Borderline High: 130-159 mg/dL High: 160-189 mg/dL Very High: >189 mg/dL 31 RUN DATE: 06/15/14 [facility] LIVE PAGE 1 RUN TIME: 1329 [address] [place], [place] [address] Specimen Inquiry Name: TJ TABOR : [address]: Lily Doyle NP Acct: [id number] Unit: [id number] AGE: 54 Location: [facility] Re06/14/14 SEX: F Status: REG REF SPEC: [id number] JANICE: 06/14/14-[address] [facility] [address]: Lily Doyle NP REQ: [id number] RECD: 06/14/14 STATUS: SOUT _ ORDERED: IMAGE ANALYSIS, HPV/Thin Prep FINAL DIAGNOSIS Negative for Intraepithelial lesion or Malignancy A. Ectocervical/Endocervical Specimen Adequacy: Satisfactory of evaluation Transformation zone component identified Patient Information: HPV: High risk HPV RNA testing regardless of pap results. Actual Specimen Date: 06/14/14 LMP If Unknown: unknown ?: N Post Menopausal?: Y Hysterectomy?: N Previous Abnormal Pap Smears?:N Date Time Test Result Flag (u) Normal Range 06/14/14 1455 HPV RNA Negative Negative The high-risk HPV types detected by the assay include: 16, 18, 31, 33, 35, 39, 45, 51, 52, 56, 58, 59, 66, and 68. Signed (signature on file) SCHUYLER Corey (ASC) 06/15/14 1329 This Pap test was evaluated with the assistance of the [employer] Test Imaging System. Due to cytologic findings at the mold holder microscope, comprehensive manual rescreening by a Platform Architect may be required. The Pap Smear is a screening test designed to aid in the detection of premalignant and malignant conditions of the uterine cervix. It is not a diagnostic procedure and should not be used as the sole means of detecting cervical cancer. Both false- positive and false- negative reports do occur. Depending on your risk status, a Pap smear should be obtained and evaluated every 1-3 years. END OF REPORT * ML=Testing performed at Main Lab DEPARTMENT OF PATHOLOGY, [address] [place] [address] Nick Church M.D. Director [facility] # [id number] 32 The high-risk HPV types detected by the assay include: 16, 18, 31, 33, 35, 39, 45, 51, 52, 56, 58, 59, 66, and 68. 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 Director [facility] # [id number] 34 -- REFERENCE VALUE -- 25-HYDROXY D TOTAL (D2+D3) Optimum levels in the healthy population are 20-50, patients with bone disease may benefit from higher levels within this range. Test Performed by: [address] [address] Wheel Mill Operator: Gagan Wang III, M.D. 35 Test Performed by: [address] [address] Wheel Mill Operator: Manju Mallory, Ph.D. 36 Test Performed by: [place] [address] Wheel Mill Operator: Manju Mallory, Ph.D. 37 FASTING 38 Normal Range 180 to 914 Indeterminate Range 145 to 180 Deficient Range <145 39 FASTING 40 FASTING 41 AM 8.7-22.4 PM <10 42 Because ethnic data is not always readily available, this report includes an eGFR for both -Americans and non- Americans. The National Kidney Disease Education Program (NKDEP) does not endorse the use of the MDRD equation for patients that are not between the ages of 18 and 70, are , have extremes of body size, muscle mass, or nutritional status, or are non- or non-. According to the National Kidney Foundation, irrespective of diagnosis, the stage of the disease is based on the level of kidney function: Stage Description GFR(mL/min/1.73 m(2)) 1 Kidney damage with normal or decreased GFR 90 2 Kidney damage with mild decrease in GFR 60-89 3 Moderate decrease in GFR 30-59 4 Severe decrease in GFR 15-29 5 Kidney failure <15 (or dialysis) 43 THERAPEUTIC TARGET FOR THE TREATMENT OF DIABETES MELLITUS PATIENTS IS <7% HBA1C, AND IN SELECTIVE PATIENTS <6.0%. PLEASE REFER TO [place] DI[employer]OC[employer]ATION DIABETIC CARE GUIDELINES FOR FURTHER INFORMATION. 44 Anion gap measurement may be of limited value in the presence of any alkalosis, especially in a combined acid base disorder. . 45 A metabolite of Naproxen, O-desmethylnaproxen, has been shown to interfere with the [place] method for measuring total bilirubin. Samples from patients who have taken Naproxen have shown spurious elevation in total bilirubin levels. 46 Because ethnic data is not always readily available, this report includes an eGFR for both -Americans and non- Americans. The National Kidney Disease Education Program (NKDEP) does not endorse the use of the MDRD equation for patients that are not between the ages of 18 and 70, are , have extremes of body size, muscle mass, or nutritional status, or are non- or non-. According to the National Kidney Foundation, irrespective of diagnosis, the stage of the disease is based on the level of kidney function: Stage Description GFR(mL/min/1.73 m(2)) 1 Kidney damage with normal or decreased GFR 90 2 Kidney damage with mild decrease in GFR 60-89 3 Moderate decrease in GFR 30-59 4 Severe decrease in GFR 15-29 5 Kidney failure <15 (or dialysis) 47 CHOLESTEROL INTERPRETATION: Desirable: Less than 200 MG/DL Borderline-High Risk: 200-239 MG/DL High-Risk: 240 MG/DL and over 48 HDL INTERPRETATION: Undesirable: High Risk: Less than 40 MG/DL Desirable: Low Risk: Greater than 60 MG/DL 49 LDL INTERPRETATION: Low Risk Optimal Level: LDL Less than 100 MG/DL Near or Above Optimal: LDL 100-129 MG/DL Borderline High Risk: LDL 130-159 MG/DL High Risk: LDL 160-189 MG/DL Very High Risk: LDL Greater than 189 MG/DL 50 ---- RUN DATE: 07/10/11 [facility] NMI LIVE PAGE 1 RUN TIME: 1443 Specimen Inquiry RUN USER: INTERFACE -- Name: TJ TABOR Status: REG REF Re07/09/11 Age/Sex: 51/F Unit#: [id number] Location: [facility] : 60 -- Specimen: [id number] SOUT Spec Date: 07/09/[address]: Lily LIP Spec Type: CYTOLOGY Received: 07/10/11-1011 Copies to: SOURCE ECTOCERVICAL/ENDOCERVICAL Thin Prep with Reflex HPV Test PATIENT INFORMATION ACTUAL COLLECTION DATE: 07/09/11 ? No POST MENOPAUSAL? No HYSTERECTOMY? No PREVIOUS ABNORMAL PAP SMEARS No LAST MENSTRUAL PERIOD: 06/16/11 ADEQUACY OF SPECIMEN Satisfactory for evaluation * Transformation zone component identified * DIAGNOSIS NEGATIVE FOR INTRAEPITHELIAL LESION OR MALIGNANCY * This Pap test was evaluated with the assistance of the Element Works[employer] Pap Test Imaging System. The Pap Smear is a screening test designed to aid in the detection of premalign ant and malignant conditions of the uterine cervix. It is not a diagnostic procedure a nd should not be used as the sole means of detecting cervical cancer. Both false- positiv e and false-negative reports do occur. Depending on your risk status, a Pap smear emma uld be obtained and evaluated every one to three years. Initial evaluation performed by Sabrina TAYLOR(ASC) 07/10/11 Final Interpretation electronically signed by: Sabrina TAYLOR(ASC) 07/10/11 1443 -- -- DEPARTMENT OF PATHOLOGY, [address] [place] [address] [facility] Permit #[id number] Tacos Tsang M.D. Neurology Technologist megan -- 51 RUN DATE: 05/17/11 [facility] NMI LIVE PAGE 1 RUN TIME: 1159 Specimen Inquiry RUN USER: INTERFACE Name: TJ TABOR Status: REG REF Re05/14/11 Age/Sex: 51/F Unit#: [id number] Location: [facility]. : 60 SPEC #: [id number] JANICE: 05/14/11-1605 STATUS: COMP REQ #: [id number] RECD: 05/15/11-[address]: Lily Lagunas SOURCE: URINE ENTR: 05/15/11-[address]: DRISS: ORDERED: URINE C S QUERIES: MEDENT REQUISITION # [id number] ACT WKST: UR 05/17/11 #1 Procedure Result Verified Site > URINE CULTURE SENSITIVI Final 05/17/11- 1159 ML Organism 1 BETA STREP GROUP B Susceptibility testing of penicillins and other B-lactams approved by FDA for treatment of Streptococcus pyogenes (Group A Strep) and Streptococcus agalactiae (Group B Strep) is not necessary for clinical purposes and need not be done routinely, since as with vancomycin, resistant strains have not been recognized. (CLSI S889-R67;p.66) Positive isolates will be saved for one week. Please call the Microbiology Laboratory if further susceptibility testing is needed. COLONY COUNT 25-50,000 ORGANISMS/ML (MODERATE) - [facility] Permit #[id number] [address] [facility] [address] DEPARTMENT OF PATHOLOGY, [facility] DATES [place], [place] [address] [facility] Permit #[id number] Nick Church M.D. Director Sulaiman Chaidez M.D. Studio Sales Associate Procedures Date CPT Code Description Status 03/07/2018 43275 EKG Tracing & Interpretation Completed 11/25/2017 Mammogram Completed 11/01/201711454 Inject/Drain Joint/Bursa Major W/O US Completed 10/25/2017 Inject/Drain Joint/Bursa Major W/O US Completed 10/18/201799502 Inject/Drain Joint/Bursa Major W/O US Completed 10/25/2016 Mammogram Completed 10/04/201603023 Inject/Drain Joint/Bursa Major W/O US Completed 09/28/2016 Inject/Drain Joint/Bursa Major W/O US Completed 09/21/201628970 Inject/Drain Joint/Bursa Major W/O US Completed 04/25/2016 68150 Laparoscopy Surg Ayanna Restrict Procedure Longitudinal Completed Gastrectomy 04/25/2016 36589 Laparoscopy Surg Ayanna Restrict Procedure Longitudinal Completed Gastrectomy 04/17/2016 84317 Diffusing Capacity Completed 04/17/2016 72872 Spirometry Incl Graphic Record Completed 04/05/2016 06780 EKG, Interpretation Only Completed 12/02/201575395 Inject/Drain Joint/Bursa Major W/O US Completed 11/25/2015 Inject/Drain Joint/Bursa Major W/O US Completed 11/18/2015 Inject/Drain Joint/Bursa Major W/O US Completed 06/22/2015 Inject/Drain Joint/Bursa Major W/O US Completed 06/17/201555931 Inject/Drain Joint/Bursa Major W/O US Completed 06/10/2015 Inject/Drain Joint/Bursa Major W/O US Completed 03/10/2015 Inject/Drain Joint/Bursa Major W/O US Completed 07/29/2014 65870 EKG, Interpretation Only Completed 07/12/2014 Inject/Drain Joint/Bursa Major W/O US Completed 07/01/2014 Mammogram Completed 08/30/2011 Colonoscopy Completed 07/16/2011 Mammogram Completed 04/14/2009 09676 Endometrial Sampling W Or W/O Endocervical BX W Or W/O Completed Cerv Dilat 04/14/2009 39550 Biopsy Of Vulva One Lesion (Separate Procedure) Completed 04/06/2009 Mammogram Completed Encounters Type Date Location Provider CPT E/M Dx Office Visit 03/07/2018 [facility] Lily Doyle, N.P. 60182 Z01.818 3:20p - Sho M17.0 Z98.84 J45.909 D3A.098 Z23 R94.31 Office Visit 10/25/2017 3:00p [facility] Lily Doyle, N.P. 12512 Z00.01 - Yani D48.62 Z85.110 J30.9 J45.20 Z01.419 Office Visit 09/23/2017 1:45p [facility] Aldridge M.D. 87522 M17.0 [facility] M25.561 M25.562 Office Visit 07/04/2017 2:20p [facility] Marsha Marsh [address]18[address] J06.9 - Yani Balderrama Office Visit 02/07/2017 10:15a [facility] [place] [address] Z98.84 Of [facility] Office Visit 11/08/2016 9:45a [facility] [place] [address] Z98.84 Of [facility] Office Visit 10/12/2016 3:20p [facility] Lily Doyle N.P. 54939 Z00.01 - [place] Z12.31 J45.20 J30.9 Z85.110 Office Visit 08/13/2016 8:15a [facility] Aldridge M.D. 64459 M25.561 [facility] M25.562 M17.0 M25.531 M67.431 Office Visit 08/09/2016 11:45a [facility] [place] [address] Z98.84 [facility] Office Visit 04/17/2016 10:15a [facility] [place] [address] Z01.811 Services [facility] D3A.090 Office Visit 04/16/2016 2:40p [facility] Lily oDyle, N.P. 52491 Z01.818 - [place] D3A.090 E66.01 J45.909 E11.65 Office Visit 05/09/2015 3:00p [facility]ridge M.D. 81868 M17.0 [facility] M25.562 M25.561 Office Visit 11/03/2014 3:45p [facility] [place] [address] 209.61 [facility] 278.01 477.9 Office Visit 09/01/2014 3:00p [facility] [place] [address] 209.69 [facility] 278.01 493.90 461.8 Office Visit 08/09/2014 10:30a [facility] [place] [address] 518.89 [facility] 461.8 493.90 477.9 278.01 Office Visit 07/28/2014 3:30p [facility]ridge M.D. 34672 715.96 [facility] Office Visit 07/26/2014 1:30p [facility] Clair Hutchinson 13305 461.8 - [place] M.D. 079.89 Office Visit 07/12/2014 11:00a [facility] M.D. 06981 715.96 [facility] Office Visit 06/14/2014 1:40p [facility] Lily Doyle, N.P. 41032 V70.0 - [place] V72.31 V76.10 790.21 493.90 477.9 278.01 272.4 719.46 698.3 Office Visit 01/13/2014 3:00p [facility] Lily Doyle, N.P. 67018 278.01 - [place] Office Visit 09/13/2011 8:40a [facility] Lily Doyle, N.P. 14304 790.21 - [place] Office Visit 07/09/2011 11:00a [facility] Lily Doyle, N.P. 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 Office Visit 10/31/2009 4:00p DO Not Use Lily Varn, 97957 078.12 [facility] N.P. 719.46 Office Visit 04/05/2009 10:15a DO Not Use Lily Varn, 17295 V72.31 [facility] N.P. 616.10 V06.1 Plan of Care Future Appointment(s):04/16/2018 10:30 am - Sophie Aldridge M.D. at [facility]03/26/2018 1:30 pm - [facility] Nuclear Schedule at [facility]03/25/2018 9:30 am - Desiree Carmichael M.D. at [facility]04/03/2018 9:30 am - Sophie Aldridge M.D. at [facility]10/28/2018 1:00 pm - Lily Doyle N.P. at [facility] Internal Medicine [facility]03/21/2018 - Sophie Aldridge M.D.M25.562 Pain in left kneeFollow up:Follow up: 2 weeks after ffhoumtN83.462 Effusion, left kneeM17.12 Unilateral primary osteoarthritis, left knee
--- OUTSIDE RECORDS SUMMARY | 2018-04-03 06:58 | XMS REPORT ---
:1960 External Reference #:[id number] Author Organization [employer] Address [address] [facility] [place] [address] [place] [address] Phone [phone] Care Team Providers Name Role Phone Marsha Marsh MD Primary Care Physician Unavailable Payers Type Date Identification Numbers Payment Provider Subscriber Health Maintenance Effective: Policy Number: [facility] Ppo Tj Marx (O) 05/27/2014 [id number] Expires: 05/26/2016 PayID: [id number] [address] [address] CongJEANNIE pantoja [address] Medigap Part B Policy Number: [id number] BS Facets Tj Tabor PayID: [id number] [address] [address] [place] [address] Problems Date Description Provider Status Onset: 05/14/2011 [...] Description Comments Marital Status Lives With Occupation [place] ETOH Use Denies alcohol use Smoking Patient has never smoked Recreational Drug Use Denies Drug Use Exercise Type/Frequency Exercises regularly lifting light weights. ; still at [facility], Allergies, Adverse Reactions, Alerts Date Description Reaction [...] B. minophen every 4-6 [place], hours as DENTURES LAB TECHNICIAN needed for pain Cane 05/09 Hx use [...] Or Administered Injection Renata Synvisc-One 016 Bordoni, DENTURES LAB TECHNICIAN Injection 1 MG Synvisc Or Administered Injection Renata Synvisc-One 016 Bordoni, DENTURES LAB TECHNICIAN Injection 1 MG Depomedrol Administered Injection Sophie 80MG 015 [place] Depomedrol Administered Injection Sophie 80MG 015 [place] Immunizations CPT Code Status Date Vaccine Lot # [id number] Given 03/07/2018 Influenza Virus Vaccine, Quadrivalent, Split, [id number] Preservative Free 70362 Given 03/02/2017 Influenza Virus Vaccine, Quadrivalent, Split, Preservative Free 54061 Given 12/21/2016 Tdap - Tetanus/Diptheria/Acellular Pertussis [id number] Q2039 Given 03/21/2016 Flu Vaccine NOS Q2037 Given 03/04/2015 Fluvirin Im 3Yrs And Older Q2037 Given 08/09/2014 Fluvirin Im 3Yrs And Older 53078 Given 04/05/2009 Tdap - Tetanus/Diptheria/Acellular Pertussis Vital Signs Date Vital Result Comment 03/07/2018 Height 64.5 inches 5'4.50" Weight 244.00 [...] Sensitivi 05/14/2011 M <SEE 51 NOTE> 1 [id number] 2 SEE RESULT BELOW Name: TJ TABOR : [address]: Lily Doyle NP Acct: [id number] Unit: [id number] AGE: 57 Location: [facility] Re10/25/17 SEX: F Status: REG REF SPEC: [id number] JANICE: 10/25/17-[address]: Lily Doyle NP REQ: [id number] RECD: 10/25/17 STATUS: SOUT _ ORDERED: TP IMAGE ANALYS, HPV/Thin Prep, HPV 16/18 GENE COMMENTS: [id number] Negative for Intraepithelial lesion or Malignancy A. [...] Signed by and Reported on: SCHUYLER Burgos(ASC) 1419 This Pap test was evaluated with the assistance of the Secure FortressPrep Test Imaging System. Due to cytologic findings at the device processing engineer microscope, comprehensive manual rescreening by a Uniform Room Attendant may be required. The Pap Smear is [...] years. END OF REPORT DEPARTMENT OF PATHOLOGY, [address] [place] [address] Nick Church M.D. Director [facility] # [id number] Desirable: <150 Borderline High: 150-199 High: 200-499 Very High: >500 4 Desirable: <200 Borderline High: 200-239 High: >239 5 Low: <40 Desirable: 40-60 High: >60 6 Desirable: <100 Near Optimal: 100-129 Borderline High: 130-159 High: 160-189 Very High: >189 7 Therapeutic target for the treatment of diabetes mellitus patients is <7% HBA1C, and in selective patients <6.0%. Please refer to [employer] Diabetes Association diabetic care guidelines for further [...] developed and its performance characteristics determined by [facility] in a manner consistent with CLIA requirements. This test has not been cleared or approved by the U.S. Food and Drug Administration. Test Performed by: [facility] [place] [address] 15 ADDITIONAL INFORMATION This test was developed and its performance characteristics determined by [facility] in a manner consistent with CLIA requirements. This test has not been cleared or approved by the U.S. Food and Drug Administration. Test Performed by: [facility] [place] [address] 16 Normal Range 180 to 914 Indeterminate Range 145 to 180 Deficient Range <145 17 ADDITIONAL INFORMATION This test was developed and its performance characteristics determined by [facility] in a manner consistent with CLIA requirements. This test has not been cleared or approved by the U.S. Food and Drug Administration. Test Performed by: [facility] - [address] [address] 18 ADDITIONAL INFORMATION This test was developed and its performance characteristics determined by [facility] in a manner consistent with CLIA requirements. This test has not been cleared or approved by the U.S. Food and Drug Administration. Test Performed by: [facility] - [address] [address] 19 Because ethnic data is not always [...] [address]: Edenilson Hope MD Acct: [id number] Unit: [id number] AGE: 56 Location: [place] [address] Re04/25/16 SEX: F Status: ADM IN SPEC: [id number] JANICE: 04/25/16- SUBM DR: Edenilson Hope MD REQ: [id number] RECD: 04/25/16 STATUS: SOUT _ ORDERED: LEVEL [...] is glistening bell-pink with normal rugal folds. Bank Cashier sections, one cassette. Signed (signature on file) Nick Church MD 1206 END OF REPORT * ML=Testing performed at Main Lab DEPARTMENT OF PATHOLOGY, [address] [place] [address] Nikc Church M.D. Director [facility] # [id number] 25 Because ethnic data is not always [...] Health LAB LIVE PAGE 1 RUN TIME: 132[address] [place], [place] [address] Specimen Inquiry Name: TJ TABOR : [address]: Lily Doyle NP Acct: [id number] Unit: [id number] AGE: 54 Location: [facility] Re06/14/14 SEX: F Status: REG REF SPEC: [id number] JANICE: 06/14/14-[address]: Lily Doyle NP REQ: [id number] RECD: 06/14/14 STATUS: SOUT _ ORDERED: IMAGE [...] 66, and 68. Signed (signature on file) Raquel Munson [place] (ASCP) 06/15/14 1329 This Pap test was evaluated with the assistance of the Kelkoo Test Imaging System. Due to cytologic findings at the device processing engineer microscope, comprehensive manual rescreening by a Uniform Room Attendant may be required. The Pap Smear is [...] performed at Main Lab DEPARTMENT OF PATHOLOGY, [address] [place] [address] Nick Church M.D. Director [facility] # [id number] 32 The high-risk HPV types detected by the assay include: 16, 18, 31, 33, 35, 39, 45, 51, 52, 56, 58, 59, 66, and 68. 33 RUN DATE: 04/30/14 [facility] LAB LIVE PAGE 1 RUN TIME: [address] [place] [address] Specimen Inquiry Name: LUTJ L : [address]: Julián Eden MD Acct: [id number] Unit: [id number] AGE: 54 Location: [facility] Re04/29/14 SEX: F Status: REG REF SPEC: [id number] JANICE: 04/29/[address] [facility] [address]: Julián Eden MD REQ: [id number] RECD: 04/29/14 STATUS: PRATEEK SALAZAR DR: Lily Doyle DENTURES LAB TECHNICIAN _ SOURCE: GAS ANTRUM SPDESC: ORDERED: Clotest Procedure Result Verified Site Clotest Final 04/30/14- 0806 ML Clotest Negative END OF REPORT * ML=Testing performed at Main Lab DEPARTMENT OF PATHOLOGY, [address] [place] [address] Nick Church M.D. Director [facility] # [id number] 34 -- REFERENCE VALUE -- 25-HYDROXY D TOTAL (D2+D3) Optimum levels in the healthy population are 20-50, patients with bone disease may benefit from higher levels within this range. Test Performed by: [address] [address] Dockmaster: Gagan Wang III, M.D. 35 Test Performed by: [place] [address] Dockmaster: Manju Mallory, Ph.D. 36 Test Performed by: [place] [address] Dockmaster: Manju Mallory, Ph.D. 37 FASTING 38 Normal [...] IN SELECTIVE PATIENTS <6.0%. PLEASE REFER TO [employer]ATION DIABETIC CARE GUIDELINES FOR FURTHER INFORMATION. 44 Anion gap measurement may be of limited value in the presence of any alkalosis, especially in a combined acid base disorder. . 45 A metabolite of Naproxen, O-desmethylnaproxen, has been shown to interfere with the Jendrassik-Kendrick method for measuring total bilirubin. Samples from [...] 189 MG/DL 50 ---- RUN DATE: 07/10/11 [facility] NMI LIVE PAGE 1 RUN TIME: 1443 Specimen Inquiry RUN USER: INTERFACE -- Name: TJ TABOR Elise Status: REG REF Re07/09/11 Age/Sex: 51/F Unit#: [id number] Location: [facility] : 60 -- Specimen: [id number] SOUT Spec Date: 07/09/[address]: Lily [...] was evaluated with the assistance of the Secure FortressPrep Pap Test Imaging System. The Pap Smear [...] three years. Initial evaluation performed by Sabrina TAYLOR([facility]) 07/10/11 Final Interpretation electronically signed by: Sabrina TAYLOR([facility]) 07/10/11 1443 -- -- DEPARTMENT OF PATHOLOGY, [address] [place] [address] [facility] Permit #[id number] Nick Church M.D. Director Sulaiman Chaidez M.D. Quality Assurance Advisor Dir megan -- 51 RUN DATE: 05/17/11 [facility] NMI LIVE PAGE 1 RUN TIME: 1159 Specimen Inquiry RUN USER: INTERFACE Name: ANGELO TABORSWAPNA Olivares Status: REG REF Re05/14/11 Age/Sex: 51/F Unit#: [id number] Location: [facility] : 60 SPEC #: [id number] JANICE: 05/14/11-1605 STATUS: PRATEEK REMaylin #: [id number] RECD: 05/15/11-[address]: Yanira SHERMANLily SOURCE: URINE ENTR: 05/15/11-[address] [facility] [address]: DRISS: ORDERED: URINE C S QUERIES: MEDENT REQUISITION # [id number] ACT WKST: UR 05/17/11 #1 Procedure Result [...] resistant strains have not been recognized. (CLSI [id number];p.66) Positive isolates will be saved for one week. Please call the Microbiology Laboratory if further susceptibility testing is needed. COLONY COUNT 25-50,000 ORGANISMS/ML (MODERATE) - [facility] Permit #[id number] [address] [place] [address] DEPARTMENT OF PATHOLOGY, [address] [place] [address] [facility] Permit #[id number] Nick Church M.D. Director Sulaiman Chaidez M.D. Bookkeepers Supervisor Procedures Date CPT Code Description Status 03/07/2018 41137 EKG Tracing & Interpretation Completed 11/25/2017 Mammogram Completed 11/01/201739731 Inject/Drain Joint/Bursa Major W/O US Completed 10/25/2017 Inject/Drain Joint/Bursa Major W/O US Completed 10/18/2017 Inject/Drain Joint/Bursa Major W/O US Completed 10/25/2016 Mammogram Completed 10/04/201665927 Inject/Drain Joint/Bursa Major W/O US Completed 09/28/201619716 Inject/Drain Joint/Bursa Major W/O US Completed 09/21/201659511 Inject/Drain Joint/Bursa Major W/O US Completed 04/25/2016 58746 Laparoscopy Surg Ayanna Restrict Procedure Longitudinal Completed Gastrectomy 04/25/2016 02841 Laparoscopy Surg Ayanna Restrict Procedure Longitudinal Completed Gastrectomy 04/17/2016 89932 Diffusing Capacity Completed 04/17/2016 09060 Spirometry Incl Graphic Record Completed 04/05/2016 49050 EKG, Interpretation Only Completed 12/02/2015 Inject/Drain Joint/Bursa Major W/O US Completed 11/25/2015 Inject/Drain Joint/Bursa Major W/O US Completed 11/18/2015 Inject/Drain Joint/Bursa Major W/O US Completed 06/22/2015 Inject/Drain Joint/Bursa Major W/O US Completed 06/17/2015 Inject/Drain Joint/Bursa Major W/O US Completed 06/10/2015 Inject/Drain Joint/Bursa Major W/O US Completed 03/10/2015 Inject/Drain Joint/Bursa Major W/O US Completed 07/29/2014 33418 EKG, Interpretation Only Completed 07/12/2014 Inject/Drain Joint/Bursa Major W/O US Completed 07/01/2014 Mammogram Completed 08/30/2011 Colonoscopy Completed 07/16/2011 Mammogram Completed 04/14/2009 81362 Endometrial Sampling W Or W/O Endocervical BX W Or W/O Completed Cerv Dilat 04/14/2009 29033 Biopsy Of Vulva One Lesion (Separate Procedure) Completed 04/06/2009 Mammogram Completed Encounters Type Date Location Provider CPT E/M Dx Office Visit 10/25/2017 [facility] Internal Medicine Lily Doyle, N.P. [address]55[address] Z00.01 3:00p - Yani D48.62 Z85.110 J30.9 J45.20 Z01.419 Office Visit 09/23/2017 1:45p [facility] M.D. 16446 M17.0 C.M.A. M25.561 M25.562 Office Visit 07/04/2017 2:20p [facility] Marsha Marsh 28534 J06.9 - Yani Balderrama Office Visit 02/07/2017 10:[facility]a [facility] [place] [address] Z98.84 [facility] Office Visit 11/08/2016 9:45a [facility] [place] [address] Z98.84 [facility] Office Visit 10/12/2016 3:20p [facility] Internal Medicine Lily Doyle N.PServando [address]87 Z00.01 - Yani Z12.31 J45.20 J30.9 Z85.110 Office Visit 08/13/2016 8:15a [facility] M.D. 70327 M25.561 C.M.A. M25.562 M17.0 M25.531 M67.431 Office Visit 08/09/2016 11:45a [facility] [place] [address] Z98.84 [facility] Office Visit 04/17/2016 10:15a [facility] [place] [address] Z01.811 [facility] D3A.090 Office Visit 04/16/2016 2:40p [facility] Lily Doyle, N.P. 85790 Z01.818 - Mary D D3A.090 E66.01 J45.909 E11.65 Office Visit 05/09/2015 3:00p [facility] M.D. 24665 M17.0 C.M.A. M25.562 M25.561 Office Visit 11/03/2014 3:45p [facility] [place] [address] 209.61 [facility] 278.01 477.9 Office Visit 09/01/2014 3:00p [facility] [place] [address] 209.69 [facility] 278.01 493.90 461.8 Office Visit 08/09/2014 10:30a [facility] [place] [address] 518.89 [facility] 461.8 493.90 477.9 278.01 Office Visit 07/28/2014 3:30p [facility] M.D. 68989 715.96 C.M.A. Office Visit 07/26/2014 1:30p [facility] Clair Hutchinson 35279 461.8 - Yani Balderrama 079.89 Office Visit 07/12/2014 11:00a [facility] M.D. 67911 715.96 C.M.A. Office Visit 06/14/2014 1:40p [facility] Lily Doyle, N.P. 54671 V70.0 - Yani V72.31 V76.10 790.21 493.90 477.9 278.01 272.4 719.46 698.3 Office Visit 01/13/2014 3:00p [facility] Lily Zhangn, N.P. 57901 278.01 - Mary D Office Visit 09/13/2011 8:40a [facility] Lily Varn, N.P. 42266 790.21 - Mary D Office Visit 07/09/2011 11:00a [facility] Lily Varn, N.P. 06331 V70.0 - Mary D V72.31 V76.10 272.4 477.9 493.90 Office Visit 05/14/2011 3:40p DO Not Use Lily Varn, 67251 461.9 [facility]-Mary D N.P. Office Visit 10/31/2009 4:00p DO Not Use Lily Varn, 42196 078.12 [facility]-Mary D N.P. 719.46 Office Visit 04/05/2009 10:15a DO Not Use Lily Varn, 60312 V72.31 [facility] N.P. 616.10 V06.1 Plan of Care Future Appointment(s):03/26/2018 1:30 pm - [facility] Nuclear Schedule at [facility]03/25/2018 9:30 am - Desiree Carmichael M.D. at [facility]04/03/2018 9:30 am - Sophie Aldridge M.D. at [facility]03/21/2018 8:00 am - Sophie Aldridge M.D. at [facility]10/28/2018 1:00 pm - Lily Doyle, N.P. at [facility]03/07/2018 - Lily Doyle, N.P.Z01.818 Encounter for other preprocedural examinationComments:I am ordering some routine preoperative lab work and a chest Xray. The office will contact you with your results. You may take all of your usual medications the morning of your surgery, unless your surgeon tells you otherwise. Please stop taking Aspirin, or Aspirin like products for 1 week prior to your surgery.M17.0 Bilateral primary osteoarthritis of kneeZ98.84 Bariatric surgery gyxcfuP61.909 Unspecified asthma , fvbnibrcfjlfcL7U.098 Benign carcinoid tumors of other ykyylW48 Encounter for cqrhefzylpogV68.31 Abnormal electrocardiogram [ECG] [EKG]New Orders:Stress Test , Pharmacologic Nuclear (Lexiscan)Comments:To further evaluate your abnormal EKG I have ordered a nuclear stress test.
--- OUTSIDE RECORDS SUMMARY | 2018-04-03 06:59 | XMS REPORT ---
:1960 External Reference #:[id number] Author Organization [employer] Address [address] [place] [address] Phone [phone] Care Team Providers Name Role Phone Marsha Marsh MD Primary Care Physician Unavailable Payers Type Date Identification Numbers Payment Provider Subscriber Health Maintenance Effective: Policy Number: [facility] Ppo Tj Marx (O) 05/27/2014 [id number] Expires: 05/26/2016 PayID: [id number] [address] [address] CongJEANNIE pantoja [address] Medigap Part B Policy Number: [id number] BS Facets Tj Tabor PayID: [id number] [address] [address] [place] [address] Problems Date Description Provider Status Onset: 05/14/2011 [...] Description Comments Marital Status Lives With Occupation [employer] ETOH Use Denies alcohol use Smoking Patient has never smoked Recreational Drug Use Denies Drug Use Exercise Type/Frequency Exercises regularly lifting light weights. ; still at [facility], Allergies, Adverse Reactions, Alerts Date Description [...] B. minophen every 4-6 [place], hours as PACKAGING INSPECTOR needed for pain Cane 05/09 Hx use [...] Or Administered Injection Renata Synvisc-One 016 Bordoni, PACKAGING INSPECTOR Injection 1 MG Synvisc Or Administered Injection Renata Synvisc-One 016 Bordoni, PACKAGING INSPECTOR Injection 1 MG Depomedrol Administered Injection Sophie 80MG 015 [place] Depomedrol Administered Injection Sophie 80MG 015 [place] Immunizations CPT Code Status Date Vaccine Lot # [id number] Given 03/07/2018 Influenza Virus Vaccine, Quadrivalent, Split, [id number] Preservative Free 95920 Given 03/02/2017 Influenza Virus Vaccine, Quadrivalent, Split, Preservative Free 27474 Given 12/21/2016 Tdap - Tetanus/Diptheria/Acellular Pertussis [id number] Q2039 Given 03/21/2016 Flu Vaccine NOS Q2037 Given 03/04/2015 Fluvirin Im 3Yrs And Older Q2037 Given 08/09/2014 Fluvirin Im 3Yrs And Older 08858 Given 04/05/2009 Tdap - Tetanus/Diptheria/Acellular Pertussis Vital [...] Sensitivi 05/14/2011 M <SEE 51 NOTE> 1 [id number] 2 SEE RESULT BELOW Name: TJ TABOR : [address]: Lily Doyle NP Acct: [id number] Unit: [id number] AGE: 57 Location: [facility] Re10/25/17 SEX: F Status: REG REF SPEC: [id number] JANICE: 10/25/17-[address]: Lily Doyle NP REQ: [id number] RECD: 10/25/17 STATUS: SOUT _ ORDERED: TP IMAGE ANALYS, HPV/Thin Prep, HPV 16/18 GENE COMMENTS: [id number] Negative for Intraepithelial lesion or Malignancy A. [...] was evaluated with the assistance of the [employer] Test Imaging System. Due to cytologic findings at the contract mail carrier microscope, comprehensive manual rescreening by a Software Program Manager may be required. The Pap Smear is [...] years. END OF REPORT DEPARTMENT OF PATHOLOGY, [address] [place] [address] Nick Church M.D. Director [facility] # [id number] Desirable: <150 Borderline High: 150-199 High: 200-499 Very High: >500 4 Desirable: <200 Borderline High: 200-239 High: >239 5 Low: <40 Desirable: 40-60 High: >60 6 Desirable: <100 Near Optimal: 100-129 Borderline High: 130-159 High: 160-189 Very High: >189 7 Therapeutic target for the treatment of diabetes mellitus patients is <7% HBA1C, and in selective patients <6.0%. Please refer to [place] [employer] diabetic care guidelines for further [...] developed and its performance characteristics determined by [facility] in a manner consistent with CLIA requirements. This test has not been cleared or approved by the U.S. Food and Drug Administration. Test Performed by: [facility] [place] [address] 15 ADDITIONAL INFORMATION This test was developed and its performance characteristics determined by [facility] in a manner consistent with CLIA requirements. This test has not been cleared or approved by the U.S. Food and Drug Administration. Test Performed by: [facility] [place] [address] 16 Normal Range 180 to 914 Indeterminate Range 145 to 180 Deficient Range <145 17 ADDITIONAL INFORMATION This test was developed and its performance characteristics determined by [facility] in a manner consistent with CLIA requirements. This test has not been cleared or approved by the U.S. Food and Drug Administration. Test Performed by: [facility] - [address] [address] 18 ADDITIONAL INFORMATION This test was developed and its performance characteristics determined by [facility] in a manner consistent with CLIA requirements. This test has not been cleared or approved by the U.S. Food and Drug Administration. Test Performed by: [facility] - [address] [address] 19 Because ethnic data is not always [...] [address]: Edenilson Hope MD Acct: [id number] Unit: [id number] AGE: 56 Location: [place] [address] Re04/25/16 SEX: F Status: ADM IN SPEC: [id number] JANICE: 04/25/16- SUBM DR: Edenilson Hope MD REQ: [id number] RECD: 04/25/16 STATUS: SOUT _ ORDERED: LEVEL [...] is glistening bell-pink with normal rugal folds. Parboiler sections, one cassette. Signed (signature on file) Nick Church MD 1206 END OF REPORT * ML=Testing performed at Main Lab DEPARTMENT OF PATHOLOGY, [address] [place] [address] Nick Church M.D. Director [facility] # [id number] Because ethnic data is not always [...] High: >189 mg/dL 31 RUN DATE: 06/15/14 [facility] LAB LIVE PAGE 1 RUN TIME: 1320 [address] [place], [place] [address] Specimen Inquiry Name: TJ TABOR : [address]: Lily Doyle NP Acct: [id number] Unit: [id number] AGE: 54 Location: [facility] Re06/14/14 SEX: F Status: REG REF SPEC: [id number] JANICE: 06/14/14-[address]: Lily Doyle NP REQ: [id number] RECD: 06/14/14 STATUS: SOUT _ ORDERED: IMAGE [...] 68. Signed (signature on file) Raquel Munson MD (ASCP) 06/15/14 1329 This Pap test was evaluated with the assistance of the [employer]by [employer]) Test Imaging System. Due to cytologic findings at the contract mail carrier microscope, comprehensive manual rescreening by a Software Program Manager may be required. The Pap Smear is [...] performed at Main Lab DEPARTMENT OF PATHOLOGY, [address] [place] [address] Nick Church M.D. Director [facility] # [id number] 32 The high-risk HPV types detected by the assay include: 16, 18, 31, 33, 35, 39, 45, 51, 52, 56, 58, 59, 66, and 68. 33 RUN DATE: 04/30/14 [facility] LAB LIVE PAGE 1 RUN TIME: [address] [place] [address] Specimen Inquiry Name: LUTJ L : [address]: Julián Eden MD Acct: [id number] Unit: [id number] AGE: 54 Location: [facility] Re04/29/14 SEX: F Status: REG REF SPEC: [id number] JANICE: 04/29/[address] [facility] [address]: Julián Eden MD REQ: [id number] RECD: 04/29/14 STATUS: PRATEEK SALAZAR DR: Lily Doyle PACKAGING INSPECTOR _ SOURCE: GAS ANTRUM SPDESC: ORDERED: Clotest Procedure Result Verified Site Clotest Final 04/30/14- 0806 ML Clotest Negative END OF REPORT * ML=Testing performed at Main Lab DEPARTMENT OF PATHOLOGY, [address] [place] [address] Nick Church M.D. Director [facility] # [id number] 34 -- REFERENCE VALUE -- 25-HYDROXY D TOTAL (D2+D3) Optimum levels in the healthy population are 20-50, patients with bone disease may benefit from higher levels within this range. Test Performed by: [address] [address] Counter Person: Gagan Wang III, M.D. 35 Test Performed by: [place] [address] Counter Person: Manju Mallory, Ph.D. 36 Test Performed by: [place] [address] Counter Person: Manju Mallory, Ph.D. 37 FASTING 38 Normal [...] IN SELECTIVE PATIENTS <6.0%. PLEASE REFER TO [place] [employer]ATION DIABETIC CARE GUIDELINES FOR FURTHER [...] 189 MG/DL 50 ---- RUN DATE: 07/10/[address] [facility] NMI LIVE PAGE 1 RUN TIME: 1443 Specimen Inquiry RUN USER: INTERFACE -- Name: TJ TABOR Elise Status: REG REF Re07/09/11 Age/Sex: 51/F Unit#: [id number] Location: [facility] : 60 -- Specimen: [id number] SOUT Spec Date: 07/09/[address]: Lily [...] was evaluated with the assistance of the RLJ Entertainment[employer] Pap Test Imaging System. The Pap Smear [...] three years. Initial evaluation performed by Sabrina TAYLOR([facility]) 07/10/11 Final Interpretation electronically signed by: Sabrina TAYLOR([facility]) 07/10/11 1443 -- -- DEPARTMENT OF PATHOLOGY, [address] [place] [address] [facility] Permit #[id number] Nick Church M.D. Director Sulaiman Chaidez M.D. Uncrater Dir megan -- 51 RUN DATE: 05/17/[address] [facility] NMI LIVE PAGE 1 RUN TIME: 1159 Specimen Inquiry RUN USER: INTERFACE Name: ANGELO TABORSWAPNA Olivares Status: REG REF Re05/14/11 Age/Sex: 51/F Unit#: [id number] Location: [facility] : 60 SPEC #: [id number] JANICE: 05/14/11-1605 STATUS: PRATEEK REMaylin #: [id number] RECD: 05/15/11-[address]: Yanira SHERMANLily SOURCE: URINE ENTR: 05/15/11-[address] [facility] [address]: DRISS: ORDERED: URINE C S QUERIES: MEDENT REQUISITION # [id number] ACT WKST: UR 05/17/11 #1 Procedure Result [...] resistant strains have not been recognized. (CLSI V282-F10;p.66) Positive isolates will be saved for one week. Please call the Microbiology Laboratory if further susceptibility testing is needed. COLONY COUNT 25-50,000 ORGANISMS/ML (MODERATE) - [facility] State Permit #[id number] [address] [place] [address] DEPARTMENT OF PATHOLOGY, [address] [place] [address] [facility] Permit #[id number] Nick Church M.D. Director Sulaiman Chaidez M.D. Payloader Operator Procedures Date CPT Code Description Status 03/07/2018 22375 EKG Tracing & Interpretation Completed 11/25/2017 Mammogram Completed 11/01/201782507 Inject/Drain Joint/Bursa Major W/O US Completed 10/25/2017 Inject/Drain Joint/Bursa Major W/O US Completed 10/18/2017 Inject/Drain Joint/Bursa Major W/O US Completed 10/25/2016 Mammogram Completed 10/04/201638489 Inject/Drain Joint/Bursa Major W/O US Completed 09/28/201635971 Inject/Drain Joint/Bursa Major W/O US Completed 09/21/201677931 Inject/Drain Joint/Bursa Major W/O US Completed 04/25/2016 44462 Laparoscopy Surg Ayanna Restrict Procedure Longitudinal Completed Gastrectomy 04/25/2016 42158 Laparoscopy Surg Ayanna Restrict Procedure Longitudinal Completed Gastrectomy 04/17/2016 16743 Diffusing Capacity Completed 04/17/2016 39320 Spirometry Incl Graphic Record Completed 04/05/2016 58670 EKG, Interpretation Only Completed 12/02/2015 Inject/Drain Joint/Bursa Major W/O US Completed 11/25/2015 Inject/Drain Joint/Bursa Major W/O US Completed 11/18/2015 Inject/Drain Joint/Bursa Major W/O US Completed 06/22/2015 Inject/Drain Joint/Bursa Major W/O US Completed 06/17/2015 Inject/Drain Joint/Bursa Major W/O US Completed 06/10/2015 Inject/Drain Joint/Bursa Major W/O US Completed 03/10/2015 Inject/Drain Joint/Bursa Major W/O US Completed 07/29/2014 83121 EKG, Interpretation Only Completed 07/12/2014 Inject/Drain Joint/Bursa Major W/O US Completed 07/01/2014 Mammogram Completed 08/30/2011 Colonoscopy Completed 07/16/2011 Mammogram Completed 04/14/2009 94056 Endometrial Sampling W Or W/O Endocervical BX W Or W/O Completed Cerv Dilat 04/14/2009 10740 Biopsy Of Vulva One Lesion (Separate Procedure) Completed 04/06/2009 Mammogram Completed Encounters Type Date Location Provider CPT E/M Dx Office Visit 10/25/2017 [facility] Lily Doyle, N.P. 32454 Z00.01 3:00p - Yani D48.62 Z85.110 J30.9 J45.20 Z01.419 Office Visit 09/23/2017 1:45p [facility] M.D. 17863 M17.0 C.M.A. M25.561 M25.562 Office Visit 07/04/2017 2:20p [facility] Medicine Marsha Marsh 65724 J06.9 - Yani Balderrama Office Visit 02/07/2017 10:15a [facility] [place] [address] Z98.84 Of [facility] Office Visit 11/08/2016 9:45a [facility] [place] [address] Z98.84 Of [facility] Office Visit 10/12/2016 3:20p [facility] Internal Medicine Lily Doyle N.PServando 15149 Z00.01 - Yani Z12.31 J45.20 J30.9 Z85.110 Office Visit 08/13/2016 8:15a [facility] M.D. 43626 M25.561 C.M.A. M25.562 M17.0 M25.531 M67.431 Office Visit 08/09/2016 11:45a [facility] [place] [address] Z98.84 [facility] Office Visit 04/17/2016 10:15a [facility] [place] [address] Z01.811 Services [facility] D3A.090 Office Visit 04/16/2016 2:40p [facility] Lily Doyle, N.P. 91208 Z01.818 - [place] D3A.090 E66.01 J45.909 E11.65 Office Visit 05/09/2015 3:00p [facility] M.D. 43363 M17.0 C.M.A. M25.562 M25.561 Office Visit 11/03/2014 3:45p [facility] [place] [address] 209.61 Services [facility] 278.01 477.9 Office Visit 09/01/2014 3:00p [facility] [place] [address] 209.69 [facility] 278.01 493.90 461.8 Office Visit 08/09/2014 10:30a [facility] [place] [address] 518.89 [facility] 461.8 493.90 477.9 278.01 Office Visit 07/28/2014 3:30p [facility] M.D. 27872 715.96 C.M.A. Office Visit 07/26/2014 1:30p [facility] Medicine Clair Hutchinson 18856 461.8 - Yani Balderrama 079.89 Office Visit 07/12/2014 11:00a [facility] M.D. 96164 715.96 C.M.A. Office Visit 06/14/2014 1:40p [facility] Lily Doyle, N.P. 84704 V70.0 - Yani V72.31 V76.10 790.21 493.90 477.9 278.01 272.4 719.46 698.3 Office Visit 01/13/2014 3:00p [facility] iLly Varn, N.P. 74509 278.01 - [place] Office Visit 09/13/2011 8:40a [facility] Lily Varn, N.P. 68972 790.21 - [place] Office Visit 07/09/2011 11:00a [facility] Lily Varn, N.P. 67659 V70.0 - [place] V72.31 V76.10 272.4 477.9 493.90 Office Visit 05/14/2011 3:40p DO Not Use Lily Varn, 36719 461.9 [facility] N.P. Office Visit 10/31/2009 4:00p DO Not Use Lily Varn, 87602 078.12 [facility] N.P. 719.46 Office Visit 04/05/2009 10:15a DO Not Use Lily Varn, 63499 V72.31 [facility] N.P. 616.10 V06.1 Plan of Care Future Appointment(s):04/03/2018 9:30 am - Sophie Aldridge M.D. at [facility].03/21/2018 8:00 am - Sophie Aldridge M.D. at [facility].10/28/2018 1:00 pm - Lily Doyle, N.P. at [facility] Internal [facility]03/07/2018 - Lily Varn, N.P.Z01.818 Encounter for other preprocedural examinationComments:I am [...] Bilateral primary osteoarthritis of kneeZ98.84 Bariatric surgery lezyjqA96.909 Unspecified asthma , dqqicgqzuuklmT8E.098 Benign carcinoid tumors of other incuwY41 Encounter for ntjstktcjksaN38.31 Abnormal electrocardiogram [ECG] [EKG]Comments:To further evaluate your abnormal EKG I have ordered a nuclear stress test.
--- OUTSIDE RECORDS SUMMARY | 2018-04-03 06:59 | XMS REPORT ---
:1960 External Reference #:[id number] Author Organization [employer] Address [address] [facility] [place] [address] [place] [address] Phone [phone] Care Team Providers Name Role Phone Marsha Marsh MD Primary Care Physician Unavailable Payers Type Date Identification Numbers Payment Provider Subscriber Health Maintenance Effective: Policy Number: [facility] Ppo Tj Marx (O) 05/27/2014 [id number] Expires: 05/26/2016 PayID: [id number] [address] [address] CongJEANNIE pantoja [address] Medigap Part B Policy Number: [id number] BS Facets Tj Tabor PayID: [id number] [address] [address] [place] [address] Problems Date Description Provider Status Onset: 05/14/2011 [...] Description Comments Marital Status Lives With Occupation [employer] [place] [employer]TO[employer] Use Denies alcohol use Smoking Patient has never smoked Recreational Drug Use Denies Drug Use Exercise Type/Frequency Exercises regularly lifting light weights. ; still at [facility], Allergies, Adverse Reactions, Alerts Date Description Reaction [...] B. minophen every 4-6 [place], hours as ADMITTED ATTORNEYS needed for pain Cane 05/09 Hx use [...] Synvisc Or Administered Injection Sophie Synvisc-One Yamilet hBagat.Tito Injection 1 MG Synvisc Or Administered Injection [...] Or Administered Injection Renata Synvisc-One 016 [place], ADMITTED ATTORNEYS Injection 1 MG Synvisc Or Administered Injection Renata Synvisc-One 016 [place], ADMITTED ATTORNEYS Injection 1 MG Depomedrol Administered Injection Sophie 80MG 015 [place] Depomedrol Administered Injection Sophie 80MG 015 [place] Immunizations CPT Code Status Date Vaccine Lot # [id number] Given 03/07/2018 Influenza Virus Vaccine, Quadrivalent, Split, [id number] Preservative Free 01800 Given 03/02/2017 Influenza Virus Vaccine, Quadrivalent, Split, Preservative Free 43680 Given 12/21/2016 Tdap - Tetanus/Diptheria/Acellular Pertussis [id number] Q2039 Given 03/21/2016 Flu Vaccine NOS Q2037 Given 03/04/2015 Fluvirin Im 3Yrs And Older Q2037 Given 08/09/2014 Fluvirin Im 3Yrs And Older 39384 Given 04/05/2009 Tdap - Tetanus/Diptheria/Acellular Pertussis Vital [...] Sensitivi 05/14/2011 M <SEE 51 NOTE> 1 [id number] 2 SEE RESULT BELOW Name: TJ TABOR : [address]: Lily Doyle NP Acct: [id number] Unit: [id number] AGE: 57 Location: [facility] Re10/25/17 SEX: F Status: REG REF SPEC: [id number] JANICE: 10/25/17-[address]: Lily Doyle NP REQ: [id number] RECD: 10/25/17 STATUS: SOUT _ ORDERED: TP IMAGE ANALYS, HPV/Thin Prep, HPV 16/18 GENE COMMENTS: [id number] Negative for Intraepithelial lesion or Malignancy A. [...] was evaluated with the assistance of the XageekPrep Test Imaging System. Due to cytologic findings at the supervisor education microscope, comprehensive manual rescreening by a Farm Machinery Set Up Mechanic may be required. The Pap Smear is [...] years. END OF REPORT DEPARTMENT OF PATHOLOGY, [address] [place] [address] Nick Church M.D. Director [facility] # [id number] Desirable: <150 Borderline High: 150-199 High: 200-499 Very High: >500 4 Desirable: <200 Borderline High: 200-239 High: >239 5 Low: <40 Desirable: 40-60 High: >60 6 Desirable: <100 Near Optimal: 100-129 Borderline High: 130-159 High: 160-189 Very High: >189 7 Therapeutic target for the treatment of diabetes mellitus patients is <7% HBA1C, and in selective patients <6.0%. Please refer to [place] [employer] diabetic care guidelines for further [...] developed and its performance characteristics determined by [facility] in a manner consistent with CLIA requirements. This test has not been cleared or approved by the U.S. Food and Drug Administration. Test Performed by: [facility] [employer] [address] 15 ADDITIONAL INFORMATION This test was developed and its performance characteristics determined by [facility] in a manner consistent with CLIA requirements. This test has not been cleared or approved by the U.S. Food and Drug Administration. Test Performed by: [place] [address] 16 Normal Range 180 to 914 Indeterminate Range 145 to 180 Deficient Range <145 17 ADDITIONAL INFORMATION This test was developed and its performance characteristics determined by [facility] in a manner consistent with CLIA requirements. This test has not been cleared or approved by the U.S. Food and Drug Administration. Test Performed by: [facility] - [address] [address] 18 ADDITIONAL INFORMATION This test was developed and its performance characteristics determined by [facility] in a manner consistent with CLIA requirements. This test has not been cleared or approved by the U.S. Food and Drug Administration. Test Performed by: [facility] - [address] [address] 19 Because ethnic data is not always [...] [address]: Edenilson Hope MD Acct: [id number] Unit: [id number] AGE: 56 Location: [place] [address] Re04/25/16 SEX: F Status: ADM IN SPEC: [id number] JANICE: 04/25/16- SUBM DR: Edenilson Hope MD REQ: [id number] RECD: 04/25/16 STATUS: SOUT _ ORDERED: LEVEL [...] is glistening bell-pink with normal rugal folds. Mechanical Manufacturing Engineer sections, one cassette. Signed (signature on file) Nick Church MD 1206 END OF REPORT * ML=Testing performed at Main Lab DEPARTMENT OF PATHOLOGY, [address] [place] [address] Nick Church M.D. Director [facility] # [id number] 25 Because ethnic data is not always [...] High: >189 mg/dL 31 RUN DATE: 06/15/14 [facility] LAB LIVE PAGE 1 RUN TIME: 132[address] [place], [place] [address] Specimen Inquiry Name: TJ TABOR : [address]: Lily Doyle NP Acct: [id number] Unit: [id number] AGE: 54 Location: [facility] Re06/14/14 SEX: F Status: REG REF SPEC: [id number] JANICE: 06/14/14-[address]: Lily Doyle NP REQ: [id number] RECD: 06/14/14 STATUS: SOUT _ ORDERED: IMAGE [...] 68. Signed (signature on file) Raquel Munson [place] (ASCP) 06/15/14 1329 This Pap test was evaluated with the assistance of the [employer] Test Imaging System. Due to cytologic findings at the supervisor education microscope, comprehensive manual rescreening by a Farm Machinery Set Up Mechanic may be required. The Pap Smear is [...] performed at Main Lab DEPARTMENT OF PATHOLOGY, [address] [place] [address] Nick Church M.D. Director [facility] # [id number] 32 The high-risk HPV types detected by the assay include: 16, 18, 31, 33, 35, 39, 45, 51, 52, 56, 58, 59, 66, and 68. 33 RUN DATE: 04/30/14 [facility] LAB LIVE PAGE 1 RUN TIME: [address] [place] [address] Specimen Inquiry Name: LUTJ L : [address]: Julián Eden MD Acct: [id number] Unit: [id number] AGE: 54 Location: [facility] Re04/29/14 SEX: F Status: REG REF SPEC: [id number] JANICE: 04/29/[address] [facility] [address]: Julián Eden MD REQ: [id number] RECD: 04/29/14 STATUS: PRATEEK SALAZAR DR: Lily Doyle ADMITTED ATTORNEYS _ SOURCE: GAS ANTRUM SPDESC: ORDERED: Clotest Procedure Result Verified Site Clotest Final 04/30/14- 0806 ML Clotest Negative END OF REPORT * ML=Testing performed at Main Lab DEPARTMENT OF PATHOLOGY, [address] [place] [address] Nick Church M.D. Director [facility] # [id number] 34 -- REFERENCE VALUE -- 25-HYDROXY D TOTAL (D2+D3) Optimum levels in the healthy population are 20-50, patients with bone disease may benefit from higher levels within this range. Test Performed by: [address] [address] Product Safety Coordinator: Gagan Wang III, M.D. 35 Test Performed by: [place] [address] Product Safety Coordinator: Manju Mallory, Ph.D. 36 Test Performed by: [place] [address] Product Safety Coordinator: Manju Mallory, Ph.D. 37 FASTING 38 Normal [...] IN SELECTIVE PATIENTS <6.0%. PLEASE REFER TO [place] [employer] DIABETIC CARE GUIDELINES FOR FURTHER [...] 189 MG/DL 50 ---- RUN DATE: 07/10/11 [facility] NMI LIVE PAGE 1 RUN TIME: 1443 Specimen Inquiry RUN USER: INTERFACE -- Name: TJ TABOR Elise Status: REG REF Re07/09/11 Age/Sex: 51/F Unit#: [id number] Location: [facility] : 60 -- Specimen: [id number] SOUT Spec Date: 07/09/[address]: Lily [...] was evaluated with the assistance of the XageekPrep Pap Test Imaging System. The Pap Smear [...] three years. Initial evaluation performed by Sabrina TAYLOR([facility]) 07/10/11 Final Interpretation electronically signed by: Sabrina TAYLOR([facility]) 07/10/11 1443 -- -- DEPARTMENT OF PATHOLOGY, [address] [place] [address] [facility] Permit #[id number] Nick Church M.D. Director Sulaiman Chaidez M.D. Wood Barker Dir megan -- 51 RUN DATE: 05/17/11 [facility] NMI LIVE PAGE 1 RUN TIME: 1159 Specimen Inquiry RUN USER: INTERFACE Name: ANGELO TABORSWAPNA Olivares Status: REG REF Re05/14/11 Age/Sex: 51/F Unit#: [id number] Location: [facility] : 60 SPEC #: [id number] JANICE: 05/14/11-1605 STATUS: PRATEEK REMaylin #: [id number] RECD: 05/15/11-[address]: Yanira SHERMANLily SOURCE: URINE ENTR: 05/15/11-[address] [facility] [address]: DRISS: ORDERED: URINE C S QUERIES: MEDENT REQUISITION # [id number] ACT WKST: UR 05/17/11 #1 Procedure Result [...] resistant strains have not been recognized. (CLSI [id number];p.66) Positive isolates will be saved for one week. Please call the Microbiology Laboratory if further susceptibility testing is needed. COLONY COUNT 25-50,000 ORGANISMS/ML (MODERATE) - [facility] Permit #[id number] [address] [place] [address] DEPARTMENT OF PATHOLOGY, [address] [place] [address] [facility] Permit #[id number] Nick Church M.D. Director Sulaiman Chaidez M.D. Hospital Cleaning Specialist Procedures Date CPT Code Description Status 03/07/2018 28155 EKG Tracing & Interpretation Completed 11/25/2017 Mammogram Completed 11/01/201718815 Inject/Drain Joint/Bursa Major W/O US Completed 10/25/2017 Inject/Drain Joint/Bursa Major W/O US Completed 10/18/2017 Inject/Drain Joint/Bursa Major W/O US Completed 10/25/2016 Mammogram Completed 10/04/201612092 Inject/Drain Joint/Bursa Major W/O US Completed 09/28/201644805 Inject/Drain Joint/Bursa Major W/O US Completed 09/21/201624301 Inject/Drain Joint/Bursa Major W/O US Completed 04/25/2016 86336 Laparoscopy Surg Ayanna Restrict Procedure Longitudinal Completed Gastrectomy 04/25/2016 82481 Laparoscopy Surg Ayanna Restrict Procedure Longitudinal Completed Gastrectomy 04/17/2016 52803 Diffusing Capacity Completed 04/17/2016 46841 Spirometry Incl Graphic Record Completed 04/05/2016 96680 EKG, Interpretation Only Completed 12/02/2015 Inject/Drain Joint/Bursa Major W/O US Completed 11/25/2015 Inject/Drain Joint/Bursa Major W/O US Completed 11/18/2015 Inject/Drain Joint/Bursa Major W/O US Completed 06/22/2015 Inject/Drain Joint/Bursa Major W/O US Completed 06/17/2015 Inject/Drain Joint/Bursa Major W/O US Completed 06/10/2015 Inject/Drain Joint/Bursa Major W/O US Completed 03/10/2015 Inject/Drain Joint/Bursa Major W/O US Completed 07/29/2014 44741 EKG, Interpretation Only Completed 07/12/2014 Inject/Drain Joint/Bursa Major W/O US Completed 07/01/2014 Mammogram Completed 08/30/2011 Colonoscopy Completed 07/16/2011 Mammogram Completed 04/14/2009 61244 Endometrial Sampling W Or W/O Endocervical BX W Or W/O Completed Cerv Dilat 04/14/2009 23956 Biopsy Of Vulva One Lesion (Separate Procedure) Completed 04/06/2009 Mammogram Completed Encounters Type Date Location Provider CPT E/M Dx Office Visit 10/25/2017 [facility] Lily Doyle, N.P. 32027 Z00.01 3:00p - Yani D48.62 Z85.110 J30.9 J45.20 Z01.419 Office Visit 09/23/2017 1:45p [facility] M.D. 82374 M17.0 C.M.A. M25.561 M25.562 Office Visit 07/04/2017 2:20p [facility] Marsha Marsh 10731 J06.9 - Yani Balderrama Office Visit 02/07/2017 10:15a [facility] [place] [address] Z98.84 Of [facility] Office Visit 11/08/2016 9:45a [facility] [place] [address] Z98.84 Of [facility] Office Visit 10/12/2016 3:20p [facility] Lily Doyle N.PServando 91595 Z00.01 - Yani Z12.31 J45.20 J30.9 Z85.110 Office Visit 08/13/2016 8:15a [facility] M.D. 11663 M25.561 C.M.A. M25.562 M17.0 M25.531 M67.431 Office Visit 08/09/2016 11:45a [facility] [place] [address] Z98.84 [facility] Office Visit 04/17/2016 10:15a [facility] [place] [address] Z01.811 [facility] D3A.090 Office Visit 04/16/2016 2:40p [facility] Lily Doyle, N.P. 26499 Z01.818 - [place] D3A.090 E66.01 J45.909 E11.65 Office Visit 05/09/2015 3:00p [facility] M.D. 28723 M17.0 C.M.A. M25.562 M25.561 Office Visit 11/03/2014 3:45p [facility] [place] [address] 209.61 [facility] 278.01 477.9 Office Visit 09/01/2014 3:00p [facility] [place] [address] 209.69 [facility] 278.01 493.90 461.8 Office Visit 08/09/2014 10:30a [facility] [place] [address] 518.89 [facility] 461.8 493.90 477.9 278.01 Office Visit 07/28/2014 3:30p [facility] M.D. 48825 715.96 C.M.A. Office Visit 07/26/2014 1:30p [facility] Clair Hutchinson 22091 461.8 - Yani Balderrama 079.89 Office Visit 07/12/2014 11:00a [facility] M.D. 72587 715.96 C.M.A. Office Visit 06/14/2014 1:40p [facility] Lily Doyle, N.P. 57427 V70.0 - Yani V72.31 V76.10 790.21 493.90 477.9 278.01 272.4 719.46 698.3 Office Visit 01/13/2014 3:00p [facility] Lily Varn, N.P. 41979 278.01 - [place] Office Visit 09/13/2011 8:40a [facility] Lily Varn, N.P. 98822 790.21 - [place] Office Visit 07/09/2011 11:00a [facility] Lily Varn, N.P. 26806 V70.0 - [place] V72.31 V76.10 272.4 477.9 493.90 Office Visit 05/14/2011 3:40p DO Not Use Lily Varn, 24042 461.9 [facility] N.P. Office Visit 10/31/2009 4:00p DO Not Use Lily Varn, 21398 078.12 [facility] N.P. 719.46 Office Visit 04/05/2009 10:15a DO Not Use Lily Varn, 94033 V72.31 [facility] N.P. 616.10 V06.1 Plan of Care Future Appointment(s):04/03/2018 9:30 am - Sophie Aldridge M.D. at [facility].03/21/2018 8:00 am - Sophie Aldridge M.D. at [facility].10/28/2018 1:00 pm - Lily Doyle, N.P. at [facility]03/07/2018 - Lily Varn, N.P.Z01.818 Encounter for other preprocedural examinationNew Orders:EKGComments:I am ordering some routine preoperative lab work and a chest Xray. The office will contact you with your results. You may take all of your usual medications the morning of your surgery , unless your surgeon tells you otherwise. 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
--- OUTSIDE RECORDS SUMMARY | 2018-04-03 06:59 | XMS REPORT ---
:1960 External Reference #:[id number] [employer] Address [address] [place] [address] [place] [address] Phone [phone] Care Team Providers Name Role Phone Marsha Marsh MD Primary Care Physician Unavailable Payers Type Date Identification Numbers Payment Provider Subscriber Health Maintenance Effective: Policy Number: [facility] Ppo Tj Marx (O) 05/27/2014 [id number] Expires: 05/26/2016 PayID: [id number] [address] [address] CongJEANNIE pantoja [address] Medigap Part B Policy Number: [id number] BS Facets Tj Tabor PayID: [id number] [address] [address] [place] [address] Problems Date Description Provider Status Onset: 05/14/2011 [...] Description Comments Marital Status Lives With Occupation [place] ETOH Use Denies alcohol use Smoking Patient has never smoked Recreational Drug Use Denies Drug Use Exercise Type/Frequency Exercises regularly lifting light weights. ; still at [facility], Allergies, Adverse Reactions, Alerts Date Description Reaction [...] B. 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 needed for pain Cane 05/09 Hx use [...] Or Administered Injection Renata Synvisc-One 016 Bordoni, WOOD HEEL FLAP TRIMMER Injection 1 MG Synvisc Or Administered Injection Renata Synvisc-One 016 Bordoni, WOOD HEEL FLAP TRIMMER Injection 1 MG Depomedrol Administered Injection Sophie 80MG 015 [place] Depomedrol Administered Injection Sophie 80MG 015 [place] Immunizations CPT Code Status Date Vaccine Lot # 32028 Given 03/07/2018 Influenza Virus Vaccine, Quadrivalent, Split, 74bl5 Preservative Free 20139 Given 03/02/2017 Influenza Virus Vaccine, Quadrivalent, Split, Preservative Free 84505 Given 12/21/2016 Tdap - Tetanus/Diptheria/Acellular Pertussis [id number] Q2039 Given 03/21/2016 Flu Vaccine NOS Q2037 Given 03/04/2015 Fluvirin Im 3Yrs And Older Q2037 Given 08/09/2014 Fluvirin Im 3Yrs And Older 15141 Given 04/05/2009 Tdap - Tetanus/Diptheria/Acellular Pertussis Vital [...] Sensitivi 05/14/2011 M <SEE 51 NOTE> 1 [id number] 2 SEE RESULT BELOW Name: TJ TABOR : [address]: Lily Doyle NP Acct: [id number] Unit: [id number] AGE: 57 Location: [facility] Re10/25/17 SEX: F Status: REG REF SPEC: [id number] JANICE: 10/25/17-[address]: Lily Doyle NP REQ: [id number] RECD: 10/25/17 STATUS: SOUT _ ORDERED: TP IMAGE ANALYS, HPV/Thin Prep, HPV 16/18 GENE COMMENTS: [id number] Negative for Intraepithelial lesion or Malignancy A. [...] was evaluated with the assistance of the WantfulPrep Test Imaging System. Due to cytologic findings at the airborne mission systems microscope, comprehensive manual rescreening by a Accounts Payable Lead may be required. The Pap Smear is [...] years. END OF REPORT DEPARTMENT OF PATHOLOGY, [address] [place] [address] Nick Church M.D. Director [facility] # [id number] 3 Desirable: <150 Borderline High: 150-199 High: 200-499 Very High: >500 4 Desirable: <200 Borderline High: 200-239 High: >239 5 Low: <40 Desirable: 40-60 High: >60 6 Desirable: <100 Near Optimal: 100-129 Borderline High: 130-159 High: 160-189 Very High: >189 7 Therapeutic target for the treatment of diabetes mellitus patients is <7% HBA1C, and in selective patients <6.0%. Please refer to [place] [employer] diabetic care guidelines for further [...] and its performance characteristics determined by [facility] in a manner consistent with CLIA requirements. This test has not been cleared or approved by the U.S. Food and Drug Administration. Test Performed by: [facility] [place] [address] 15 ADDITIONAL INFORMATION This test was developed and its performance characteristics determined by [facility] in a manner consistent with CLIA requirements. This test has not been cleared or approved by the U.S. Food and Drug Administration. Test Performed by: [facility] [address] 16 Normal Range 180 to 914 Indeterminate Range 145 to 180 Deficient Range <145 17 ADDITIONAL INFORMATION This test was developed and its performance characteristics determined by [facility] in a manner consistent with CLIA requirements. This test has not been cleared or approved by the U.S. Food and Drug Administration. Test Performed by: [facility] - [address] [address] 18 ADDITIONAL INFORMATION This test was developed and its performance characteristics determined by [facility] in a manner consistent with CLIA requirements. This test has not been cleared or approved by the U.S. Food and Drug Administration. Test Performed by: [facility] - [address] [address] 19 Because ethnic data is not always [...] [address]: Edenilson Hope MD Acct: [id number] Unit: [id number] AGE: 56 Location: [place] [address] Re04/25/16 SEX: F Status: ADM IN SPEC: [id number] JANICE: 04/25/16- SUBM DR: Edenilson Hope MD REQ: [id number] RECD: 04/25/16 STATUS: SOUT _ ORDERED: LEVEL [...] is glistening bell-pink with normal rugal folds. Electronic Equipment Rep[employer]men sections, one cassette. Signed (signature on file) Nick Church MD 1206 END OF REPORT * ML=Testing performed at Main Lab DEPARTMENT OF PATHOLOGY, [address] [place] [address] Nick Church M.D. Director [facility] # [id number] 25 Because ethnic data is not always [...] High: >189 mg/dL 31 RUN DATE: 06/15/14 [facility] LAB LIVE PAGE 1 RUN TIME: [address] [place], [place] [address] Specimen Inquiry Name: TJ TABOR : [address]: Lily Doyle NP Acct: [id number] Unit: [id number] AGE: 54 Location: [facility] Re06/14/14 SEX: F Status: REG REF SPEC: [id number] JANICE: 06/14/14-[address]: Lily Doyle NP REQ: [id number] RECD: 06/14/14 STATUS: SOUT _ ORDERED: IMAGE [...] 68. Signed (signature on file) Raquel Munson CO (ASCP) 06/15/14 1329 This Pap test was evaluated with the assistance of the YieldBuild Test Imaging System. Due to cytologic findings at the airborne mission systems microscope, comprehensive manual rescreening by a Accounts Payable Lead may be required. The Pap Smear is [...] performed at Main Lab DEPARTMENT OF PATHOLOGY, [address] [place] [address] Nick Church M.D. Director [facility] # [id number] 32 The high-risk HPV types detected by the assay include: 16, 18, 31, 33, 35, 39, 45, 51, 52, 56, 58, 59, 66, and 68. 33 RUN DATE: 04/30/14 [facility] LAB LIVE PAGE 1 RUN TIME: [address] [place] [address] Specimen Inquiry Name: LUTJ L : [address]: Julián Eden MD Acct: [id number] Unit: [id number] AGE: 54 Location: [facility] Re04/29/14 SEX: F Status: REG REF SPEC: [id number] JANICE: 04/29/[address] [facility] [address]: Julián Eden MD REQ: [id number] RECD: 04/29/14 STATUS: PRATEEK SALAZAR DR: Liyl Doyle WOOD HEEL FLAP TRIMMER _ SOURCE: GAS ANTRUM SPDESC: ORDERED: Clotest Procedure Result Verified Site Clotest Final 04/30/14- 0806 ML Clotest Negative END OF REPORT * ML=Testing performed at Main Lab DEPARTMENT OF PATHOLOGY, [address] [place] [address] Nick Church M.D. Director [facility] # [id number] 34 -- REFERENCE VALUE -- 25-HYDROXY D TOTAL (D2+D3) Optimum levels in the healthy population are 20-50, patients with bone disease may benefit from higher levels within this range. Test Performed by: [address] [address] Manager Intensive Care: Gaagn Wang III, M.D. 35 Test Performed by: [place] [address] Manager Intensive Care: Manju Mallory, Ph.D. 36 Test Performed by: [place] [address] Manager Intensive Care: Manju Mallory, Ph.D. 37 FASTING 38 Normal [...] IN SELECTIVE PATIENTS <6.0%. PLEASE REFER TO [place] [employer] DIABETIC CARE GUIDELINES FOR FURTHER [...] 189 MG/DL 50 ---- RUN DATE: 07/10/11 [facility] NMI LIVE PAGE 1 RUN TIME: 1443 Specimen Inquiry RUN USER: INTERFACE -- Name: TJ TABOR Elise Status: REG REF Re07/09/11 Age/Sex: 51/F Unit#: [id number] Location: [facility] : 60 -- Specimen: [id number] SOUT Spec Date: 07/09/[address]: Lily [...] was evaluated with the assistance of the WantfulPrep Pap Test Imaging System. The Pap Smear [...] three years. Initial evaluation performed by Sabrina TAYLOR([facility]) 07/10/11 Final Interpretation electronically signed by: Sabrina TAYLOR([facility]) 07/10/11 1443 -- -- DEPARTMENT OF PATHOLOGY, [address] [place] [address] [facility] Permit #[id number] Nick Church M.D. Director Sulaiman Chaidez M.D. Military Science Instructor Dir megan -- 51 RUN DATE: 05/17/11 [facility] NMI LIVE PAGE 1 RUN TIME: 1159 Specimen Inquiry RUN USER: INTERFACE Name: ANGELO TABORSWAPNA Olivares Status: REG REF Re05/14/11 Age/Sex: 51/F Unit#: [id number] Location: [facility] : 60 SPEC #: [id number] JANICE: 05/14/11-1605 STATUS: PRATEEK REMaylin #: [id number] RECD: 05/15/11-[address]: Yanira SHERMNALily SOURCE: URINE ENTR: 05/15/11-[address] [facility] [address]: DRISS: ORDERED: URINE C S QUERIES: MEDENT REQUISITION # [id number] ACT WKST: UR 05/17/11 #1 Procedure Result [...] resistant strains have not been recognized. (CLSI [id number];p.66) Positive isolates will be saved for one week. Please call the Microbiology Laboratory if further susceptibility testing is needed. COLONY COUNT 25-50,000 ORGANISMS/ML (MODERATE) - [facility] Permit #[id number] [address] [place] [address] DEPARTMENT OF PATHOLOGY, [address] [place] [address] [facility] Permit #[id number] Nick Church M.D. Director Sulaiman Chaidez M.D. Supervisor Drawing Procedures Date CPT Code Description Status 11/25/2017 Mammogram Completed 11/01/201774122 Inject/Drain Joint/Bursa Major W/O US Completed 10/25/201743533 Inject/Drain Joint/Bursa Major W/O US Completed 10/18/201792634 Inject/Drain Joint/Bursa Major W/O US Completed 10/25/2016 Mammogram Completed 10/04/201646990 Inject/Drain Joint/Bursa Major W/O US Completed 09/28/201645111 Inject/Drain Joint/Bursa Major W/O US Completed 09/21/201658342 Inject/Drain Joint/Bursa Major W/O US Completed 04/25/2016 [address]0741 Laparoscopy Surg Ayanna Restrict Procedure Longitudinal Completed Gastrectomy 04/25/2016 37137 Laparoscopy Surg Ayanna Restrict Procedure Longitudinal Completed Gastrectomy 04/17/2016 29562 Diffusing Capacity Completed 04/17/2016 76097 Spirometry Incl Graphic Record Completed 04/05/2016 05262 EKG, Interpretation Only Completed 12/02/2015 Inject/Drain Joint/Bursa Major W/O US Completed 11/25/2015 81057 Inject/Drain Joint/Bursa Major W/O US Completed 11/18/2015 Inject/Drain Joint/Bursa Major W/O US Completed 06/22/2015 Inject/Drain Joint/Bursa Major W/O US Completed 06/17/2015 Inject/Drain Joint/Bursa Major W/O US Completed 06/10/2015 Inject/Drain Joint/Bursa Major W/O US Completed 03/10/2015 Inject/Drain Joint/Bursa Major W/O US Completed 07/29/2014 96976 EKG, Interpretation Only Completed 07/12/2014 Inject/Drain Joint/Bursa Major W/O US Completed 07/01/2014 Mammogram Completed 08/30/2011 Colonoscopy Completed 07/16/2011 Mammogram Completed 04/14/2009 47148 Endometrial Sampling W Or W/O Endocervical BX W Or W/O Completed Cerv Dilat 04/14/2009 33776 Biopsy Of Vulva One Lesion (Separate Procedure) Completed 04/06/2009 Mammogram Completed Encounters Type Date Location Provider CPT E/M Dx Office Visit 10/25/2017 [facility] Lily Doyle, N.P. 17762 Z00.01 3:00p - Yani D48.62 Z85.110 J30.9 J45.20 Z01.419 Office Visit 09/23/2017 1:45p [facility] M.D. 04567 M17.0 C.M.A. M25.561 M25.562 Office Visit 07/04/2017 2:20p [facility] Internal Medicine Marsha Marsh [address]34[address] J06.9 - Yani Balderrama Office Visit 02/07/2017 10:15a [facility] [place] [address] Z98.84 Of [facility] Office Visit 11/08/2016 9:45a [facility] [place] [address] Z98.84 Of [facility] Office Visit 10/12/2016 3:20p [facility] Internal Medicine Lily Doyle N.P. 48001 Z00.01 - Yani Z12.31 J45.20 J30.9 Z85.110 Office Visit 08/13/2016 8:15a [facility] M.D. 58189 M25.561 C.M.A. M25.562 M17.0 M25.531 M67.431 Office Visit 08/09/2016 11:45a [facility] [place] [address] Z98.84 [facility] Office Visit 04/17/2016 10:15a [facility] [place] [address] Z01.811 Services Of [facility] D3A.090 Office Visit 04/16/2016 2:40p [facility] Internal Medicine Lily Doyle N.P. 37844 Z01.818 - [place] D3A.090 E66.01 J45.909 E11.65 Office Visit 05/09/2015 3:00p [facility] M.D. 46226 M17.0 C.M.A. M25.562 M25.561 Office Visit 11/03/2014 3:45p [facility] [place] [address] 209.61 Services Of [facility] 278.01 477.9 Office Visit 09/01/2014 3:00p [facility] [place] [address] 209.69 Services Of [facility] 278.01 493.90 461.8 Office Visit 08/09/2014 10:30a [facility] [place] [address] 518.89 Services Of [facility] 461.8 493.90 477.9 278.01 Office Visit 07/28/2014 3:30p [facility] M.D. 24711 715.96 C.M.A. Office Visit 07/26/2014 1:30p [facility] Internal Medicine Clair Hutchinson 71216 461.8 - Yani Balderrama 079.89 Office Visit 07/12/2014 11:00a [facility] M.D. 68796 715.96 C.M.A. Office Visit 06/14/2014 1:40p [facility] Lily Doyle N.P. 24172 V70.0 - [place] V72.31 V76.10 790.21 493.90 477.9 278.01 272.4 719.46 698.3 Office Visit 01/13/2014 3:00p [facility] Lily Varn, N.P. 34104 278.01 - [place] Office Visit 09/13/2011 8:40a [facility] Lily Varn, N.P. 04181 790.21 - [place] Office Visit 07/09/2011 11:00a [facility] Lily Varn, N.P. 09038 V70.0 - [place] V72.31 V76.10 272.4 477.9 493.90 Office Visit 05/14/2011 3:40p DO Not Use Lily Varn, 61988 461.9 [facility] N.P. Office Visit 10/31/2009 4:00p DO Not Use Lily Varn, 62819 078.12 [facility] N.P. 719.46 Office Visit 04/05/2009 10:15a DO Not Use Lily Varn, 94527 V72.31 [facility] N.P. 616.10 V06.1 Plan of Care Future Appointment(s):04/03/2018 9:30 am - Sophie Aldridge M.D. at [facility] [address].03/21/2018 8:00 am - Sophie Aldridge M.D. at [facility] [address].10/28/2018 1:00 pm - Lily Doyle, N.P. at [facility] Internal [facility]03/07/2018 - Lily Doyle, N.P.Z01.818 Encounter for other preprocedural examinationNew Orders:EKGComments:I [...] Bilateral primary osteoarthritis of kneeZ98.84 Bariatric surgery awmgaoI98.909 Unspecified asthma , hpcaytsxfjqjkZ7Z.098 Benign carcinoid tumors of other aihkkF48 Encounter for bsdaavutzbibI38.31 Abnormal electrocardiogram [ECG] [EKG]New Orders:Stress Test , Pharmacologic Nuclear (Lexiscan)Comments:To further evaluate your abnomral EKG I have orderd a nuclear stress test.
[2018-04-03] MEDS ORDERED: Clindamycin 900 MG/D5W BAG(*) 900 MG/50 ML BAG IVPB ONE (07:07)
[2018-04-03] MEDS ORDERED: Morphine VIAL* 4 MG/ML VIAL (1 ml vial) IV ONE (07:56)
[2018-04-03] MEDS ORDERED: Scopolamine 1.5 mg* PATCH ONE (08:03)
[2018-04-03] MEDS ORDERED: fentaNYL* 50 MCG/ML 5 ML VIAL (250 MCG VIAL) ONE (08:27)
[2018-04-03] MEDS ORDERED: Propofol* 500 MG/50 ML BTL ONE (09:35)
[2018-04-03] MEDS ORDERED: Dexamethasone IV* 4 MG/ML 1 ML (4 MG) ONE (09:59)
[2018-04-03] MEDS ORDERED: Acetaminophen IV 1GM/100ML * 1,000 MG/100 ML VIAL IVPB ONE (10:49)
[2018-04-03] MEDS ORDERED: oxyCODONE TAB* 5 MG TAB PO PRN (10:49)
[2018-04-03] MEDS ORDERED: Naloxone* 0.4 MG/ML 1 ML VIAL IV PRN (10:49)
[2018-04-03] MEDS ORDERED: Ondansetron INJ* 2 MG/ML VIAL IV PRN ×2 (10:49→11:57)
[2018-04-03] MEDS ORDERED: HYDROmorphone INJ1* 1 MG/ML SYRINGE IV PRN (10:49)
[2018-04-03] MEDS ORDERED: Magnesium Hydroxide LIQ* 30 ML UDC PO PRN (11:57)
[2018-04-03] MEDS ORDERED: oxyCODONE/Acetamin 5/325 MG* TAB PO PRN (11:57)
[2018-04-03] MEDS ORDERED: Cyclobenzaprine TAB* 10 MG PO PRN (11:57)
[2018-04-03] MEDS ORDERED: Morphine VIAL* 4 MG/ML VIAL (1 ml vial) IV PRN (11:57)
[2018-04-03] MEDS ORDERED: diPHENhydraMINE IV* 50 MG/ML 1 ml VIAL (BENADRYL) IV PRN (11:57)
[2018-04-03] MEDS ORDERED: Bisacodyl SUPP* 10 MG SUPP PR PRN (12:02)
[2018-04-03] MEDS ORDERED: diPHENhydraMINE PO* 25 MG PO PRN (12:02)
[2018-04-03] MEDS ORDERED: Polyethylene Glycol 3350* 17 GM PACKET PO PRN (12:02)
[2018-04-03] MEDS: oxyCODONE TAB* 5 MG TAB PO PRN ×2 (15:30→21:12)
[2018-04-03] MEDS ORDERED: Enoxaparin(*) 30 MG/0.3 ML SYR SUBCUT SCH (16:00)
[2018-04-03] MEDS: Clotrimazole 1% CREAM* 45 GM TOPICAL SCH (16:18)
[2018-04-03] MEDS ORDERED: NS 0.9% 500 ML* 500 ML IV ONE (16:48)
--- NOTE | 2018-04-03 16:55 | CONSULT ---
Subjective Date of Service: 04/03/18 Interval History: This is a 58 year old female patient with end stage degenerative joint disease of the left knee, POD#0 LTKA. CAT call for near syncope when patient was getting moved from the bed to the chair. This is her first time OOB since surgery today. Patient states she began to feel dizzy and nearly syncopized per staff. HR was bradycardic in the 40s and BP with SBP<80. Patient did not lose consciousness, remembers the entire incident. States she feels somewhat nauseous now, does endorse that she had oral narcotic before getting OOB. Denies SOB, no chest pain. States she is feeling better laying in chair. No further complaints. Family History: Unchanged from Admission - non-contributory Social History: Unchanged from Admission - denies ETOH, drugs or tobacco Past Medical History: Unchanged from Admission - OA, chronic lumbar back pain, impaired fasting glucose Review of Systems - Measurements Intake and Output: Intake and Output Last 24 Hours 04/01/18 04/02/18 04/03/18 04/04/18 06:59 06:59 06:59 06:59 Intake Total 1500 Output Total 1800 Balance -300 Weight 245 lb Intake: IV Fluids 1500 lr 1500 Output: Garcia 1550 Estimated Blood Loss 250 - Review of Systems Constitutional Symptoms: Negative: Weight Gain, Weight Loss, Weakness, Fatigue, Fever, Night Sweats, Unexplained Falls, Other HEENT: Negative: Normal, Change in Hearing, Vertigo, Dental Problems, Tinnitus, Sinus Problem, Other Eyes: Negative: Normal, Change in Vision, Double Vision, Eye Pain, Glaucoma, Cataract, Contacts or Glasses, Other Thyroid: Negative: Normal, Goiter, Thyroid Nodule, Cold Intolerance, Heat Intolerance , Sweatiness, Tremor, Frequent Defecation, Constipation, Palpitations, Primary Hypothyroidism, Primary Hyperthyroidism, Weight Loss, Weight Gain, Change in Skin/Hair, Change in Menstruation, Radiation Exposure, Other Pulmonary: Negative: Normal, Cough, Sputum, Hemoptysis, Wheezing, Respiratory Distress, Shortness of Breath, COPD, Asthma, Exercise Intolerance, Home Oxygen, Other Cardiology: Positive: Faintness Negative: Normal, Chest Pain, Shortness of Breath, Palpitations, Swelling of Ankles, Peripheral Vascular Dis, Edema, Syncope, Claudication, Proximal NocturnalDyspnea, Orthopnoea, Other Gastroenterology: Negative: Normal, Abdominal Pain, Nausea, Vomiting, Anorexia, Indigestion, Difficulty Swallowing, Heartburn, Constipation, Diarrhea, Blood in Stools, Change in Bowel Habits, Haematemesis, Melena, Other Genital - Urinary: Negative: Normal, Dysuria, Hematuria, Polyuria, Nocturia, Other Musculoskeletal: Positive: Joint Stiffness - s/p LTKA today Negative: Joint Pain, Arthritis, Osteoporosis, Low Back Pain, Sciatica, Joint Deformities, Kyphoscoliosis, Other Endocrinology: Negative: Normal, Thyroid Problems, Adrenal Problems, Gonadal Problems, Family Hx Endocrine Disorders, Obesity, Diabetes Mellitus, Hyperglycemia, Hx Hypoglycemia, Diabetic Foot Ulcers, Calluses, Hirsutism, Menstral Abnormalities , Polydipsia, Polyuria, Gonadal Problems, Gynecomastia, Pituitary disease, Other Hematologic/Lymphatic: Negative: Anemia, Easy Brusing, Hx Leukemia, Hx Lymphoma, Use of Anticoagulant, Use of Antiplatelet Drugs, Other Neurology: Negative: Normal, Headache, Migraines, Change in Vision, Diplopia, Dizziness , Change in Balancing, Change in Coordination, Change in Memory, Change in Speech, Change in Sphincter Function, Change in Walking, Numbness\Paresthesiae, Unexplained Weakness, Hx of Stroke\TIA, Hx of Seizures, Other Psychiatry: Negative: Normal, Depression, Anxiety, Depressed Mood, Adhedonia, Sexual Dysfunction, Weight Change, Guilt Feelings, Tearfulness, Unusual Fatigue, Unusual Anxiety, Suicidal Ideation, Hypomania, Eating Disorders, Other Allergic/Immunologic: Positive: Other - see chart Objective Active Medications: Acetaminophen (Tylenol Tab*) 975 mg PO Q8H [facility] Bisacodyl (Dulcolax Supp*) 10 mg DE DAILY PRN PRN Reason: constipation Cetirizine HCl (Zyrtec*) 10 mg PO BEDTIME [facility] Clotrimazole (Clotrimazole 1%*) 1 applic TOPICAL DAILY [facility] Last Admin: 04/03/18 16:18 Dose: 1 applic Cyclobenzaprine HCl (Flexeril Tab*) 10 mg PO TID PRN PRN Reason: SPASMS Diphenhydramine HCl (Benadryl Po*) 25 mg PO Q6H PRN PRN Reason: INSOMNIA Docusate Sodium (Colace Cap*) 100 mg PO BID [facility] Enoxaparin Sodium (Lovenox(*)) 30 mg SUBCUT Q24H [facility] Tranexamic Acid 1,000 mg/ (Sodium Chloride) 60 mls @ 120 mls/hr IV ONCE Stop: 04/03/18 23:59 Cefazolin Sodium/Dextrose (Kefzol 1 Gm In Dextrose Duplex (*)) 1 gm in 50 mls @ 200 mls/hr IVPB Q8H [facility] Stop: 04/04/18 09:14 Lactated Ringer's (Lactated Ringers 1000 Ml Bag*) 1,000 mls @ 100 mls/hr IV PER RATE [facility] Last Admin: 04/03/18 15:22 Dose: 100 mls/hr Sodium Chloride (Ns 0.9% 500 Ml*) 500 mls @ 1,000 mls/hr IV ONCE ONE Stop: 04/03/18 17:17 Lactulose (Lactulose*) 30 ml PO Q6H PRN PRN Reason: constipation Magnesium Hydroxide (Milk Of Magnesia Liq*) 30 ml PO BID JLUIS Magnesium Hydroxide (Milk Of Magnesia Liq*) 30 ml PO Q6H PRN PRN Reason: constipation Morphine Sulfate (Morphine Vial*) 2 mg IV Q2H PRN PRN Reason: PAIN - SEVERE Ondansetron HCl (Zofran Inj*) 4 mg IV Q6H PRN PRN Reason: nausea Last Admin: 04/03/18 16:43 Dose: 4 mg Oxycodone HCl (Roxycodone Tab*) 10 mg PO Q4H PRN PRN Reason: moderate to severe pain Last Admin: 04/03/18 15:30 Dose: 10 mg Oxycodone/Acetaminophen (Percocet 5/325 Tab*) 1 tab PO Q3H PRN PRN Reason: PAIN - MODERATE Oxycodone/Acetaminophen (Percocet 5/325 Tab*) 2 tab PO Q3H PRN PRN Reason: PAIN - MODERATE Pharmacy Profile Note (Coumadin Daily Reminder*) 1 note FOLLOW UP 1700 [facility] Polyethylene Glycol/Electrolytes (Miralax*) 17 gm PO DAILY PRN PRN Reason: Constipation Tramadol HCl (Ultram*) 50 mg PO Q6H PRN PRN Reason: PAIN Warfarin Sodium (Coumadin Tab(*)) 6 mg PO ONCE@1700 ONE; Protocol Stop: 04/03/18 17:01 Vital Signs - 8 hr 04/03/18 04/03/18 04/03/18 11:55 11:57 12:00 Temperature 97.9 F Pulse Rate 71 68 Respiratory 7 10 Rate Blood Pressure 103/53 (mmHg) O2 Sat by Pulse 100 100 Oximetry 04/03/18 04/03/18 04/03/18 12:01 12:06 12:11 Temperature Pulse Rate 59 59 64 Respiratory 14 13 15 Rate Blood Pressure 104/52 109/56 94/56 (mmHg) O2 Sat by Pulse 100 99 100 Oximetry 04/03/18 04/03/18 04/03/18 12:16 12:31 12:46 Temperature Pulse Rate 63 60 59 Respiratory 17 17 12 Rate Blood Pressure 97/59 99/51 99/50 (mmHg) O2 Sat by Pulse 98 99 96 Oximetry 04/03/18 04/03/18 04/03/18 13:00 13:01 13:04 Temperature Pulse Rate 57 81 76 Respiratory 13 19 17 Rate Blood Pressure 97/55 97/55 (mmHg) O2 Sat by Pulse 95 95 97 Oximetry 04/03/18 04/03/18 04/03/18 13:16 13:31 13:45 Temperature 98.2 F Pulse Rate 57 58 Respiratory 14 15 Rate Blood Pressure 108/54 105/59 (mmHg) O2 Sat by Pulse 96 93 Oximetry 04/03/18 04/03/18 04/03/18 13:46 14:00 14:01 Temperature Pulse Rate 58 57 64 Respiratory 13 15 13 Rate Blood Pressure 104/49 113/59 (mmHg) O2 Sat by Pulse 93 94 93 Oximetry 04/03/18 04/03/18 04/03/18 14:16 14:23 14:31 Temperature Pulse Rate 55 64 59 Respiratory 12 16 12 Rate Blood Pressure 98/48 116/68 104/57 (mmHg) O2 Sat by Pulse 93 95 93 Oximetry 04/03/18 04/03/18 04/03/18 14:45 15:22 15:30 Temperature 98.2 F Pulse Rate 58 72 Respiratory 12 16 18 Rate Blood Pressure 102/55 114/57 (mmHg) O2 Sat by Pulse 93 95 Oximetry Oxygen Devices in Use Now: Nasal Cannula Appearance: alert, pale, NAD Eyes: No Scleral Icterus, PERRLA Ears/Nose/Mouth/Throat: NL Teeth, Lips, Gums, Mucous Membranes Moist Neck: NL Appearance and Movements; NL JVP, Trachea Midline Respiratory: Symmetrical Chest Expansion and Respiratory Effort, Clear to Auscultation Cardiovascular: NL Sounds; No Murmurs; No JVD, - - thready pulse, bradycardic Extremities: No Clubbing, Cyanosis Skin: No Rash or Ulcers Neurological: Alert and Oriented x 3 Nutrition: Taking PO's Assessment/Plan - Billing Assessment and Diagnoses: 1. OA, s/p LTKA 2. Post-Operative Vasovagal Syncope with hypotention and bradycardia Recommendations: - NS bolus now - 12 lead EKG with bradycardia rate in low 50's, no ectopy and no ST segment changes, BP improving - Check CBC, CMP and mag - Blood glucose 216 (patient already had crackers and juice) - Zofran 4mg IVP now - Encourage slow position changes and recommend taking PO before taking narcotics - Continue NS at maintenance @ 100ml/hr VTE PPX: - As per ortho, lovenox with coumadin bridge Diet: - Regular as tolerated Code Status: - Full Code Admission Status and Rationale: - Clinically stable, remain inpatient for continued post-operative management. Clear for PT once SBP>100. Coordinated with staff and ortho team.
[2018-04-03] MEDS ORDERED: Warfarin TAB(*) 6 MG PO ONE (17:00)
[2018-04-03] MEDS: NS 0.9% 1000 ML* 1,000 ML IV SCH (17:17)
[2018-04-03] MEDS: ceFAZolin 1 GM in Dextrose (*) 1 GM/50 ML BAG IVPB SCH (17:18)
[2018-04-03 17:58] LABS: ABS Basophils 0 10^3/ul (0-0.2); ABS Eosinophils 0 10^3/ul (0-0.6); ABS Lymphocytes 0.8 10^3/ul (1.0-4.8); ABS Monocytes 0.3 10^3/ul (0-0.8); ABS Neutrophils 17.2 10^3/ul (1.5-7.7); ABS Nucleated RBC 0 10^3/ul; Eosinophil % 0 % (0-6); Hematocrit 40 % (35-47); Hemoglobin 13.1 g/dl (12.0-16.0); Lymphocyte % 4.2 % (25-47); Mean Corpuscular HGB Conc 33 g/dl (31-36); Mean Corpuscular Hemoglobin 29 pg (27-31); Mean Corpuscular Volume 86 fL (80-97); Mean Platelet Volume 9.8 fL (7.4-10.4); Nucleated Red Blood Cells % 0; Platelet Count 234 10^3/ul (150-450); Red Blood Count 4.58 10^6/ul (4.00-5.40); Red Cell Distribution Width 14 % (10.5-15); White Blood Count 18.3 10^3/ul (3.5-10.8)
[2018-04-03 18:14] LABS: EGFR Non-African American 95.3 (>60)
[2018-04-03] MEDS ORDERED: NS 0.9% 1000 ML* 1,000 ML IV ONE (19:41)
[2018-04-03] MEDS ORDERED: Magnesium Sulfate 2 GM IV (Premix) IVPB ONE (20:00)
[2018-04-03] MEDS: traMADol TAB* 50 MG PO PRN (21:13)
[2018-04-03] MEDS: Magnesium Hydroxide LIQ* 30 ML UDC PO SCH (21:13)
[2018-04-03] MEDS: Cetirizine* 10 MG TAB PO SCH (23:27)
[2018-04-03] MEDS: Docusate CAP* 100 MG PO SCH (23:27)
[2018-04-03] MEDS: Acetaminophen TAB* 325 MG PO SCH (23:27)
[2018-04-04 00:12] LABS: Hematocrit 38 % (35-47); Hemoglobin 12.5 g/dl (12.0-16.0)
[2018-04-04] MEDS: ceFAZolin 1 GM in Dextrose (*) 1 GM/50 ML BAG IVPB SCH ×2 (01:00→07:58)
[2018-04-04] MEDS: oxyCODONE/Acetamin 5/325 MG* TAB PO PRN ×5 (03:45→23:28)
[2018-04-04 06:04] LABS: Hematocrit 37 % (35-47); Hemoglobin 12.3 g/dl (12.0-16.0); Platelet Count 209 10^3/ul (150-450)
[2018-04-04 06:09] LABS: INR 1.03 (0.77-1.02)
[2018-04-04 06:21] LABS: EGFR Non-African American 104.7 (>60)
[2018-04-04] MEDS: NS 0.9% 1000 ML* 1,000 ML IV SCH (06:42)
[2018-04-04] MEDS: traMADol TAB* 50 MG PO PRN (06:42)
[2018-04-04] MEDS: Docusate CAP* 100 MG PO SCH ×2 (07:55→19:59)
[2018-04-04] MEDS: Acetaminophen TAB* 325 MG PO SCH ×2 (07:55→13:40)
[2018-04-04] MEDS: Magnesium Hydroxide LIQ* 30 ML UDC PO SCH ×2 (07:55→20:00)
[2018-04-04] MEDS: Clotrimazole 1% CREAM* 45 GM TOPICAL SCH (09:58)
[2018-04-04] MEDS: oxyCODONE TAB* 5 MG TAB PO PRN ×3 (10:38→19:59)
--- NOTE | 2018-04-04 10:57 | PN ---
Progress Note - Progress Note Date of Service: 04/04/18 SOAP: Subjective: []Patient seen OOB in chair. She had a vaso vagal event last evening upon returning to the floor and attempting 1st time out of bed. She is much improved today with no further events. Objective: [] Vital Signs Temp 98.1 F 04/04/18 07:17 Pulse 62 04/04/18 07:17 Resp 18 04/04/18 10:38 BP 110/49 04/04/18 07:17 Pulse Ox 99 04/04/18 08:00 Intake & Output 04/03/18 04/04/18 04/04/18 18:59 06:59 18:59 Intake Total 2254 3298 310 Output Total 1800 975 Balance 454 2323 310 Weight 245 lb Intake: IV Fluids 2254 1957 LR 154 NS (0.9%) 600 1958 lr 1500 IVPB 110 ABX - CEFAZOLIN 110 Medicated IV 70 GEN - Magnesium 70 Oral 1160 310 Output: Garcia 1550 975 Estimated Blood Loss 250 Other: Estimated Void Medium # Bowel Movements 0 # Voids 1 Laboratory Results - last 24 hr 04/03/18 04/03/18 04/03/18 17:04 17:48 17:48 WBC 18.3 H RBC 4.58 Hgb 13.1 Hct 40 MCV 86 MCH 29 MCHC 33 RDW 14 Plt Count 234 MPV 9.8 Neut % (Auto) 94.1 H Lymph % (Auto) 4.2 L [place] % (Auto) 1.6 Eos % (Auto) 0 Baso % (Auto) 0.1 Absolute Neuts (auto) 17.2 H Absolute Lymphs (auto) 0.8 L Absolute Monos (auto) 0.3 Absolute Eos (auto) 0 Absolute Basos (auto) 0 Absolute Nucleated RBC 0 Nucleated RBC % 0 INR (Anticoag Therapy) Sodium 139 Potassium 4.0 Chloride 105 Carbon Dioxide 27 Anion Gap 7 BUN 10 Creatinine 0.64 Est GFR ( Amer) 115.3 Est GFR (Non-Af Amer) 95.3 BUN/Creatinine Ratio 15.6 Glucose 249 H POC Glucose (mg/dL) 216 H Calcium 8.5 L Magnesium 1.6 L Total Bilirubin 0.70 AST 16 ALT 17 Alkaline Phosphatase 93 Total Protein 6.1 L Albumin 3.5 Globulin 2.6 Albumin/Globulin Ratio 1.3 04/03/18 04/04/18 04/04/18 23:57 05:49 05:49 WBC RBC Hgb 12.5 12.3 Hct 38 37 MCV MCH MCHC RDW Plt Count 209 MPV 10.0 Neut % (Auto) Lymph % (Auto) [place] % (Auto) Eos % (Auto) Baso % (Auto) Absolute Neuts (auto) Absolute Lymphs (auto) Absolute Monos (auto) Absolute Eos (auto) Absolute Basos (auto) Absolute Nucleated RBC Nucleated RBC % INR (Anticoag Therapy) 1.03 H Sodium Potassium Chloride Carbon Dioxide Anion Gap BUN Creatinine Est GFR ( Amer) Est GFR (Non-Af Amer) BUN/Creatinine Ratio Glucose POC Glucose (mg/dL) Calcium Magnesium Total Bilirubin AST ALT Alkaline Phosphatase Total Protein Albumin Globulin Albumin/Globulin Ratio 04/04/18 05:49 WBC RBC Hgb Hct MCV MCH MCHC RDW Plt Count MPV Neut % (Auto) Lymph % (Auto) [place] % (Auto) Eos % (Auto) Baso % (Auto) Absolute Neuts (auto) Absolute Lymphs (auto) Absolute Monos (auto) Absolute Eos (auto) Absolute Basos (auto) Absolute Nucleated RBC Nucleated RBC % INR (Anticoag Therapy) Sodium 138 Potassium 4.0 Chloride 106 Carbon Dioxide 24 Anion Gap 8 BUN 10 Creatinine 0.59 Est GFR ( Amer) 126.7 Est GFR (Non-Af Amer) 104.7 BUN/Creatinine Ratio 16.9 Glucose 137 H POC Glucose (mg/dL) Calcium 8.4 L Magnesium Total Bilirubin AST ALT Alkaline Phosphatase Total Protein Albumin Globulin Albumin/Globulin Ratio Left knee dressing is c/d/i calf NT and soft +DF/PF left knee sensation intact distally Assessment: []s/p LTK arthroplasty POD #1 post op vaso vagal event yesterday- no further events since Plan: []PT/OT WBAT LLE Coumadin with Lovenox bridge-8 mg today Dressing change 04/05 Possible home with VNS Saturday if continues to do well
[2018-04-04] MEDS: Enoxaparin(*) 30 MG/0.3 ML SYR SUBCUT SCH (12:36)
[2018-04-04] MEDS ORDERED: Warfarin TAB(*) 4 MG PO ONE (17:00)
[2018-04-04] MEDS: Omeprazole CAP* 20 MG PO SCH (17:03)
--- NOTE | 2018-04-04 17:42 | PN ---
Subjective Date of Service: 04/04/18 Interval History: Patient seen and examined. Feeling well, no further issues overnight. No issues on tele. Pain well controlled, has complaint of mild heartburn only. Denies chest pain, SOB, n/v. Family History: Unchanged from Admission - non-contributory Social History: Unchanged from Admission - denies ETOH, drugs or tobacco Past Medical History: Unchanged from Admission - OA, chronic lumbar back pain, impaired fasting glucose Objective Active Medications: Acetaminophen (Tylenol Tab*) 975 mg PO Q8H [facility] Last Admin: 04/04/18 13:40 Dose: Not Given Bisacodyl (Dulcolax Supp*) 10 mg [place] DAILY PRN PRN Reason: constipation Cetirizine HCl (Zyrtec*) 10 mg PO BEDTIME [facility] Last Admin: 04/03/18 23:27 Dose: 10 mg Clotrimazole (Clotrimazole 1%*) 1 applic TOPICAL DAILY [facility] Last Admin: 04/04/18 09:58 Dose: 1 applic Cyclobenzaprine HCl (Flexeril Tab*) 10 mg PO TID PRN PRN Reason: SPASMS Last Admin: 04/03/18 20:47 Dose: 10 mg Diphenhydramine HCl (Benadryl Po*) 25 mg PO Q6H PRN PRN Reason: INSOMNIA Docusate Sodium (Colace Cap*) 100 mg PO BID [facility] Last Admin: 04/04/18 07:55 Dose: 100 mg Enoxaparin Sodium (Lovenox(*)) 30 mg SUBCUT Q24H [facility] Last Admin: 04/04/18 12:36 Dose: 30 mg Sodium Chloride (Ns 0.9% 1000 Ml*) 1,000 mls @ 100 mls/hr IV PER RATE [facility] Last Admin: 04/04/18 06:42 Dose: 100 mls/hr Lactulose (Lactulose*) 30 ml PO Q6H PRN PRN Reason: constipation Magnesium Hydroxide (Milk Of Magnesia Liq*) 30 ml PO BID [facility] Last Admin: 04/04/18 07:55 Dose: 30 ml Magnesium Hydroxide (Milk Of Magnesia Liq*) 30 ml PO Q6H PRN PRN Reason: constipation Morphine Sulfate (Morphine Vial*) 2 mg IV Q2H PRN PRN Reason: PAIN - SEVERE Last Admin: 04/03/18 20:37 Dose: 2 mg Omeprazole (Prilosec Cap*) 20 mg PO DAILY@0600 [facility] Last Admin: 04/04/18 17:03 Dose: 20 mg Ondansetron HCl (Zofran Inj*) 4 mg IV Q6H PRN PRN Reason: nausea Last Admin: 04/03/18 16:43 Dose: 4 mg Oxycodone HCl (Roxycodone Tab*) 10 mg PO Q4H PRN PRN Reason: moderate to severe pain Last Admin: 04/04/18 15:52 Dose: 10 mg Oxycodone/Acetaminophen (Percocet 5/325 Tab*) 1 tab PO Q3H PRN PRN Reason: PAIN - MODERATE Oxycodone/Acetaminophen (Percocet 5/325 Tab*) 2 tab PO Q3H PRN PRN Reason: PAIN - MODERATE Last Admin: 04/04/18 12:36 Dose: 2 tab Pharmacy Profile Note (Coumadin Daily Reminder*) 1 note FOLLOW UP 1700 [facility] Last Admin: 04/04/18 15:53 Dose: 1 note Polyethylene Glycol/Electrolytes (Miralax*) 17 gm PO DAILY PRN PRN Reason: Constipation Tramadol HCl (Ultram*) 50 mg PO Q6H PRN PRN Reason: PAIN Last Admin: 04/04/18 06:42 Dose: 50 mg Vital Signs - 8 hr 04/04/18 04/04/18 04/04/18 09:58 10:38 11:39 Temperature 98.2 F Pulse Rate 53 Respiratory 16 18 16 Rate Blood Pressure 125/57 (mmHg) O2 Sat by Pulse 97 Oximetry 04/04/18 04/04/18 04/04/18 12:36 15:36 15:52 Temperature 97.9 F Pulse Rate 72 Respiratory 16 18 16 Rate Blood Pressure 119/62 (mmHg) O2 Sat by Pulse 98 Oximetry Oxygen Devices in Use Now: None Appearance: alert, NAD Eyes: No Scleral Icterus, PERRLA Ears/Nose/Mouth/Throat: NL Teeth, Lips, Gums, Mucous Membranes Moist Neck: NL Appearance and Movements; NL JVP, Trachea Midline Respiratory: Symmetrical Chest Expansion and Respiratory Effort, Clear to Auscultation Cardiovascular: NL Sounds; No Murmurs; No JVD, RRR Abdominal: NL Sounds; No Tenderness; No Distention Skin: No Rash or Ulcers, - - dressing CDI Neurological: Alert and Oriented x 3, NL Sensation Nutrition: Taking PO's Result Diagrams: 04/04/18 05:49 04/04/18 05:49 Assess/Plan/Problems-Billing Assessment and Diagnoses: This is a 58 year old female with end stage OA of the left knee, s/p LTKA that had a near syncopal episode post-operatively. - Patient Problems (1) Status post total left knee replacement Code(s): Z96.652 - PRESENCE OF LEFT ARTIFICIAL KNEE JOINT SNOMED Code(s): 4148346446128 Comment: - POD1 - POC as per ortho, pain cotrol, DVT prophy with lovenox-coumadin bridge - OOB with PT/OT (2) Vasovagal near syncope Code(s): R55 - SYNCOPE AND COLLAPSE SNOMED Code(s): 855286623 Comment: - s/p bolus, EKG and labs for CAT call last night - EKG with bradycardia, leukocytosis likely reactive 2/2 surgery, afebrile, non -toxic appearing - Episode was vasovagal, no changes overnight, participated in PT today, progressing well - Will DC telemetry (bradycardia resolved) (3) Dyspepsia Code(s): R10.13 - EPIGASTRIC PAIN SNOMED Code(s): 385540779 Comment: - Maalox PRN - Add PPI Status and Disposition: Dispo per ortho
[2018-04-04] MEDS: Cetirizine* 10 MG TAB PO SCH (19:59)
--- NOTE | 2018-04-04 20:43 | OP ---
OPERATIVE REPORT: DATE OF OPERATION: 04/03/18 DATE OF : 60 SURGEON: Sophie Aldridge MD YARD CONDUCTOR: MIRANDA Castillo Ms. Gill did help throughout the procedure with preparation of the leg, wound retraction, manipulat ion of the knee and wound closure. ANESTHESIOLOGIST: Dr. Tavarez. ANESTHESIA: Spinal. PRE-OP DIAGNOSIS: Severe end-stage degenerative osteoarthritis of the left knee joint. POST-OP DIAGNOSIS: Severe end-stage degenerative osteoarthritis of the left knee joint. OPERATIVE PROCEDURE: Left total knee arthroplasty. TOURNIQUET TIME: 39 minutes. COMPLICATIONS: None. ESTIMATED BLOOD LOSS: 200 cc. SPECIMEN: Bone and cartilage from the left knee joint sent to Pathology. HARDWARE: This is cemented [employer] Nephew total knee arthroplasty hardware with 2 packages of Simp caden bone cement. For the femur, a left 5 narrow Oxinium posterior stabilized Legion femoral componen t. For the tibia, a left 3 Erika II tibial base plate. For the insert, an 11-mm posterior stabili zed articular insert, size 3-4 and for the patella, a 29-mm 3 peg all poly patella. BRIEF HISTORY/INDICATIONS: Ms. Tabor is a 58-year-old female with years of increasingly severe knee pain. She failed conservative antiinflammatories, pain medications, and intraarticular injection. Radiographs showed [id number] arthritis. Due to continued pain and decreased quality of life, she elected to undergo left total knee arthroplasty. Informed consent was obtained from the patient. Sh e understood the risks of surgery included but were not limited to bleeding, infection, damage to cain rby structures, continued pain, need for further surgery, intraoperative fracture, nerve palsy, hardw are failure or loosening, knee stiffness, loss of motion, stroke, heart attack, blood clot, and . She wished to proceed. INTRAOPERATIVE FINDINGS: Intraoperatively, the patient was noted to have severe end-stage arthritis with complete loss of cartilage in the medial and patellofemoral compartments. DESCRIPTION OF PROCEDURE: Ms. Tabor was identified in the preanesthesia unit. Her left lower extrem ity was marked as the correct operative side. Informed consent was signed and placed in the chart. The patient was taken to the operating room and placed under spinal anesthesia. A Garcia catheter was placed. Tourniquet was placed on the left thigh. Left lower extremity was prepped and draped in th e usual sterile fashion. Preop time-out was made to correctly identify the patient, side and site. Appropriate perioperative antibiotics were given within 1 hour of incision. Tourniquet was inflated and total tourniquet time for this procedure was 39 minutes. A midline incis ion was made with a 10 blade and carried down to the extensor mechanism. A new 10 blade was used to make a standard medial parapatellar arthrotomy. The patella was subluxed laterally. Electrocautery was used to subperiosteally elevate soft tissue off the superomedial tibia to the mid sagittal plane. The knee was flexed up. The anterior horn of the lateral meniscus and ACL were sharply released. A drill was used to enter the distal femur. Intramedullary distal femoral cutting guide was pinned o n the distal femur. Oscillating saw was used to make the distal femoral cut. The external rotation guide was pinned on the distal femur. The distal femur was sized to a size 5. A size 5 multi-cuttin g jig was pinned on the distal femur. Oscillating saw was used to make the appropriate 4 chamfer cut s. The PCL was completely released. Extramedullary tibial cutting guide was pinned on the proximal tibi a. Oscillating saw was used to make the proximal tibial cut perpendicular to the mechanical axis of the tibia. The bone was carefully removed. The knee was brought out into the full extension. The sp acer block had good fit with medial and lateral ligamentous balancing. Flexion and extension gaps we re well balanced. The knee was flexed up. Lamina hand launderer was placed both medially and laterally. Any remaining meniscus was carefully removed with electrocautery. Curved osteotome was used to remove any posterior osteophytes. Tibial tray and drop alcira were placed and these confirmed a satisfactory tibial cut. Next, the size 5 left narrow femoral trial was impacted on to the distal femur. The tri al had good fit and stability. The box for the posterior stabilized implant was prepared using a pura braeden and box cut osteotome. A size 3 tibial tray trial with an 11-mm insert trial was placed and the knee was taken through range of motion. The knee had full extension to 130 degrees of flexion. Ther e was satisfactory patellofemoral tracking. The patella was everted. 9 mm of patellar bone and cartilage was carefully removed using an oscillat ing saw. Patella was sized to a size 29. Three peg holes were drilled through the size 29 guide. A 29 trial patella was placed and the knee was taken through range of motion. There was satisfactory patellofemoral tracking. All trials were carefully removed. The tibia was subluxed anteriorly and si zed to a size 3. Proximal tibia was prepared using a size 3 keel punch. All bony cut surfaces were copiously irrigated with sterile saline and dried. Final implants were cemented into place starting with the tibia followed by the femur and lastly the patella. An 11-mm insert trial was placed and th e knee was brought out into full extension. Tourniquet was turned down at 39 minutes. Electrocautery was used to obtain meticulous hemostasis. The knee was copiously irrigated with sterile saline once again. Once the cement had fully cured, th e insert trial was removed. Any excess cement was removed from around the capsule and hardware. An 11-mm insert was chosen as the final implant and locked into position on the tibial tray. Stability of the insert was checked and rechecked and noted to be stable. The extensor mechanism was closed using interrupted #1 Vicryl. The rest of the incisions were closed in a layered fashion using 0 and 2-0 Vicryl. The skin was closed using running 3-0 nylon suture. S terile Xeroform, 4x4's, and Webril were used to cover the incision. Colin wrap and cold pack were plac ed over this. The patient's anesthesia was reversed without difficulty. She was taken to the PACU in stable condit ion. Intended weightbearing will be weightbearing as tolerated. Intended DVT prophylaxis will be Co umadin with a Lovenox bridge. [id number]/[facility] #: [id number]
[2018-04-05] MEDS: Acetaminophen TAB* 325 MG PO SCH ×3 (01:26→13:47)
[2018-04-05] MEDS: oxyCODONE TAB* 5 MG TAB PO PRN ×2 (02:18→07:24)
[2018-04-05] MEDS: oxyCODONE/Acetamin 5/325 MG* TAB PO PRN ×3 (04:23→14:48)
[2018-04-05] MEDS: Omeprazole CAP* 20 MG PO SCH (05:40)
[2018-04-05 05:52] LABS: Hematocrit 33 % (35-47); Mean Platelet Volume 9.7 fL (7.4-10.4); Platelet Count 184 10^3/ul (150-450)
[2018-04-05 05:58] LABS: INR 1.57 (0.77-1.02)
[2018-04-05] MEDS: Clotrimazole 1% CREAM* 45 GM TOPICAL SCH (08:52)
[2018-04-05] MEDS: Magnesium Hydroxide LIQ* 30 ML UDC PO SCH (08:53)
[2018-04-05] MEDS: Docusate CAP* 100 MG PO SCH (08:53)
--- NOTE | 2018-04-05 08:54 | PN ---
Progress Note - Progress Note Date of Service: 04/05/18 SOAP: Subjective: POD #2 Left TKA, doing well. States that she is ok with walking, has some difficulty getting in and out of bed. Likely ready for d/c home later today. Denies CP/SOB, f/c, n/v. Objective: Vitals: Temp Pulse Resp BP Pulse Ox 98.7 F 83 16 137/84 93 04/05/18 07:26 04/05/18 07:26 04/05/18 07:26 04/05/18 07:26 04/05/18 07:26 Gen: A&Ox3, NAD at rest sitting in bed LLE: Incision C/D/I. Mild edema, no ecchymosis or erythema. +f/e at ankle and MTPs. N/V intact Labs: Laboratory Results - last 24 hr 04/05/18 04/05/18 05:32 05:32 Hgb 11.0 L Hct 33 L Plt Count 184 MPV 9.7 INR (Anticoag Therapy) 1.57 H Assessment: POD #2 Left TKA Plan: D/C home later today after PT INR 1.57, Coumadin 6mg tonight and tomorrow F/u with Dr. Aldridge 10-14 days
[2018-04-05] MEDS: Enoxaparin(*) 30 MG/0.3 ML SYR SUBCUT SCH (12:14)
[2018-04-05 12:36] VITALS: BP 139/67
--- NOTE | 2018-04-05 14:48 | PN ---
Subjective Date of Service: 04/05/18 Interval History: Patient seen and examined. Feeling well, ready for discharge home. Denies SOB, no chest pain, surgical pain well controlled. Discussed her blood sugar which has been elevated, patient agreeable to outpatient follow up with her PCP, as she states she has no history of diabetes. Family History: Unchanged from Admission - non-contributory Social History: Unchanged from Admission - denies ETOH, drugs or tobacco Past Medical History: Unchanged from Admission - OA, chronic lumbar back pain, impaired fasting glucose Objective Active Medications: Acetaminophen (Tylenol Tab*) 975 mg PO Q8H [facility] Last Admin: 04/05/18 13:47 Dose: Not Given Bisacodyl (Dulcolax Supp*) 10 mg NE DAILY PRN PRN Reason: constipation Cetirizine HCl (Zyrtec*) 10 mg PO BEDTIME [facility] Last Admin: 04/04/18 19:59 Dose: 10 mg Clotrimazole (Clotrimazole 1%*) 1 applic TOPICAL DAILY [facility] Last Admin: 04/05/18 08:52 Dose: 1 applic Cyclobenzaprine HCl (Flexeril Tab*) 10 mg PO TID PRN PRN Reason: SPASMS Last Admin: 04/03/18 20:47 Dose: 10 mg Diphenhydramine HCl (Benadryl Po*) 25 mg PO Q6H PRN PRN Reason: INSOMNIA Docusate Sodium (Colace Cap*) 100 mg PO BID [facility] Last Admin: 04/05/18 08:53 Dose: 100 mg Enoxaparin Sodium (Lovenox(*)) 30 mg SUBCUT Q24H [facility] Last Admin: 04/05/18 12:14 Dose: 30 mg Sodium Chloride (Ns 0.9% 1000 Ml*) 1,000 mls @ 100 mls/hr IV PER RATE [facility] Last Admin: 04/04/18 06:42 Dose: 100 mls/hr Lactulose (Lactulose*) 30 ml PO Q6H PRN PRN Reason: constipation Magnesium Hydroxide (Milk Of Magnesia Liq*) 30 ml PO BID [facility] Last Admin: 04/05/18 08:53 Dose: 30 ml Magnesium Hydroxide (Milk Of Magnesia Liq*) 30 ml PO Q6H PRN PRN Reason: constipation Morphine Sulfate (Morphine Vial*) 2 mg IV Q2H PRN PRN Reason: PAIN - SEVERE Last Admin: 04/03/18 20:37 Dose: 2 mg Omeprazole (Prilosec Cap*) 20 mg PO DAILY@0600 [facility] Last Admin: 04/05/18 05:40 Dose: 20 mg Ondansetron HCl (Zofran Inj*) 4 mg IV Q6H PRN PRN Reason: nausea Last Admin: 04/03/18 16:43 Dose: 4 mg Oxycodone HCl (Roxycodone Tab*) 10 mg PO Q4H PRN PRN Reason: moderate to severe pain Last Admin: 04/05/18 07:24 Dose: 10 mg Oxycodone/Acetaminophen (Percocet 5/325 Tab*) 1 tab PO Q3H PRN PRN Reason: PAIN - MODERATE Oxycodone/Acetaminophen (Percocet 5/325 Tab*) 2 tab PO Q3H PRN PRN Reason: PAIN - MODERATE Last Admin: 04/05/18 10:28 Dose: 2 tab Pharmacy Profile Note (Coumadin Daily Reminder*) 1 note FOLLOW UP 1700 [facility] Last Admin: 04/04/18 15:53 Dose: 1 note Polyethylene Glycol/Electrolytes (Miralax*) 17 gm PO DAILY PRN PRN Reason: Constipation Tramadol HCl (Ultram*) 50 mg PO Q6H PRN PRN Reason: PAIN Last Admin: 04/04/18 06:42 Dose: 50 mg Vital Signs - 8 hr 04/05/18 04/05/18 04/05/18 07:24 07:26 08:00 Temperature 98.7 F Pulse Rate 83 Respiratory 18 16 20 Rate Blood Pressure 137/84 (mmHg) O2 Sat by Pulse 93 93 Oximetry 04/05/18 04/05/18 04/05/18 10:28 10:30 11:23 Temperature 98.6 F Pulse Rate 77 Respiratory 18 18 16 Rate Blood Pressure 139/67 (mmHg) O2 Sat by Pulse 99 Oximetry 04/05/18 12:15 Temperature Pulse Rate Respiratory 18 Rate Blood Pressure (mmHg) O2 Sat by Pulse Oximetry Oxygen Devices in Use Now: None Appearance: alert, NAD Eyes: No Scleral Icterus, PERRLA Ears/Nose/Mouth/Throat: NL Teeth, Lips, Gums, Mucous Membranes Moist Neck: NL Appearance and Movements; NL JVP, Trachea Midline Respiratory: Symmetrical Chest Expansion and Respiratory Effort, Clear to Auscultation Cardiovascular: NL Sounds; No Murmurs; No JVD, RRR Extremities: No Edema, No Clubbing, Cyanosis, - - dressing CDI Skin: No Rash or Ulcers Neurological: Alert and Oriented x 3, NL Sensation Nutrition: Taking PO's Result Diagrams: 04/05/18 05:32 04/04/18 05:49 Assess/Plan/Problems-Billing Assessment and Diagnoses: This is a 58 year old female with end stage OA of the left knee, s/p LTKA that had a near syncopal episode post-operatively. - Patient Problems (1) Status post total left knee replacement Code(s): Z96.652 - PRESENCE OF LEFT ARTIFICIAL KNEE JOINT SNOMED Code(s): 2869373712476 Comment: - POD2 - POC as per ortho, pain cotrol, DVT prophy with lovenox-coumadin bridge - OOB with PT/OT - Will be discharged today per ortho (2) Vasovagal near syncope Code(s): R55 - SYNCOPE AND COLLAPSE SNOMED Code(s): 064365881 Comment: - Resolved/stable (3) Dyspepsia Code(s): R10.13 - EPIGASTRIC PAIN SNOMED Code(s): 813466485 Comment: - Maalox PRN, PPI Status and Disposition: Dispo per ortho. Medically stable.
--- NOTE | 2018-04-05 16:51 | DS ---
AMENDED REPORT NOW INCLUDES COSIGNER DESIGNATION DISCHARGE SUMMARY: DATE OF ADMISSION: 04/03/18 DATE OF DISCHARGE: 04/05/18 PROVIDER: Dr. Sophie Aldridge.* (DICTATED BY MIRANDA HUTSON) ADMITTING DIAGNOSIS: Severe end-stage osteoarthritis of the left knee. DISCHARGE DIAGNOSIS: Severe end-stage osteoarthritis of the left knee, status post left total knee arthroplasty. HISTORY OF PRESENT ILLNESS: Ms. Tabor is a 58-year-old female who is being followed by Dr. Aldridge with ongoing pain of the left knee. She failed conservative treatment and elected to proceed with a left total knee arthroplasty. HOSPITAL COURSE: On 04/03/18, the patient was admitted to [facility] and underwent a successful left total knee arthroplasty. She recovered briefly in the Postanesthesia Care Unit and was transferred to the short-stay surgical unit in stable condition. Her pain was well controlled with oral and IV pain medication. On postop day 1, the patient had a stable H and H of 13.1 and 40, INR was 1.03 with 6 mg of Coumadin. Previously, her Garcia catheter was removed and she was able to void without difficulty. She was able to ambulate and participate with physical therapy with a rolling walker. On postop day 2, the patient's H and H dropped sightly to 11.0 and 33, INR was 1.57 with 8 mg of Coumadin previously. The patient's pain was better controlled alternating Percocet and oral oxycodone. She did not require any IV pain medications at this point. She was again able to participate with physical therapy and was found stable for discharge home at this point. Throughout the hospital course, the patient's vital signs remained stable and she was afebrile. DISCHARGE CONDITION: Stable. DISCHARGE DISPOSITION: Home with visiting nurse services, home care, and physical therapy. DISCHARGE MEDICATIONS: The patient will take: 1. Percocet 5/325 one to two tabs p.o. q.6 hours p.r.n. pain. She will alternate with oxycodone 5 mg p.o. q.6 hours p.r.n. pain. 2. Colace 100 mg p.o. b.i.d. 3. Coumadin 2 mg daily or as directed by visiting nurse through the doctor. She will take 6 mg on 04/05/18. She will take an additional 6 mg on 04/06/18 have a repeat INR drawn on 04/07/18. She will resume her home medications of: 1. Xyzal 5 mg p.o. q.h.s. 2. Flintstones multivitamin 2 tabs daily. 3. Ibuprofen as needed for pain. 4. Calcium/vitamin D/vitamin K supplementation 1 tab daily. 5. Clotrimazole cream as needed topically. DISCHARGE INSTRUCTIONS: The patient's weight bearing as tolerated with the use of rolling walker. She is understanding to keep her incision clean and dry until postop day 3, she may shower normally at that time. She will not submerge the incision in the bathtub, hot tub, or swimming pool. She will apply dry dressing as needed. She will go directly to the emergency room with any chest pain, shortness of breath, fever greater than 101, calf pain or swelling. She will otherwise call the office with any problems or concerns. She will follow up in the office 10 to [address] Aldridge. MIRANDA HUTSON [id number]/[facility] #: [id number] EDILMA
== END 2018-04-05 16:00 | disposition home health service (06) | DRG 302 ==
LOC: AA 06:53 → SSU 15:16
PROVIDERS: ADMIT Orthopaedic Surgery Adult Reconstructive Orthopaedic Surgery; ATTEND Student in an Organized Health Care Education/Training Program
PROC: 0SRD069 Replacement of Left Knee Joint with Oxidized Zirconium on Polyethylene Synthetic Substitute, Cemented, Open Approach (ICD-10-PCS; principal; 2018-04-03 09:00)
DX: M17.12 Unilateral primary osteoarthritis, left knee (principal); D62 Acute posthemorrhagic anemia; R55 Syncope and collapse; R10.13 Epigastric pain; M54.5 Low back pain; M25.762 Osteophyte, left knee; R73.02 Impaired glucose tolerance (oral); Z85.118 Personal history of other malignant neoplasm of bronchus and lung; Z79.899 Other long term (current) drug therapy; Z88.6 Allergy status to analgesic agent; Z91.040 Latex allergy status; Z88.0 Allergy status to penicillin; Z91.048 Other nonmedicinal substance allergy status; Z80.9 Family history of malignant neoplasm, unspecified
CPT/HCPCS: 36415; 80048; 80053; 83735; 85014; 85018; 85025; 85049; 85610; 93005; A9270-GY; C1776; J0690; J1100; J1650; J2250; J2270; J2405; J2704; J2795; J3010; J3475

== ENCOUNTER 2018-10-01 09:43 | Emergency (ER) | payer BC ==
[2018-10-01 09:56] VITALS: BP 139/78
--- NOTE | 2018-10-01 11:00 | UC ---
Throat Pain/Nasal [place] HPI - HPI Summary HPI Summary: 2 days of fever Tmax 100.5, right-sided ear pressure/sinus pressure and worsening sore throat. No nausea/vomiting. No cough or congestion. - History of Current Complaint Chief Complaint: UCGeneralIllness Stated Complaint: SINUS/THROAT Time Seen by Provider: 10/01/18 10:46 Hx Obtained From: Patient Onset/Duration: Gradual Onset, Lasting Days, Still Present Severity: Moderate Pain Intensity: 2 Pain Scale Used: 0-10 Numeric Cough: None Associated Signs & Symptoms: Positive: Sinus Discomfort, Fever - Allergies/Home Medications Allergies/Adverse Reactions: Allergies Allergy/AdvReac Type Severity Reaction Status Date / Time latex Allergy Mild Blisters Verified 10/01/18 09:57 nickel Allergy Mild Rash Verified 10/01/18 09:57 Penicillins Allergy Mild Rash Verified 10/01/18 09:57 naproxen [From Aleve] Allergy INCREASED Verified 10/01/18 09:57 BP/ANXIOUS ENVIRONMENTAL/SEASONAL Allergy SOB, Uncoded 10/01/18 09:57 HAYFEVER WHEEZING, ASTHMA LIKE SYMPTOMS POMEGRANITE Allergy ANAPHYLACTI Uncoded 10/01/18 09:57 C PMH/Surg Hx/FS Hx/Imm Hx Respiratory History: Asthma Cancer History: Lung Cancer - Surgical History Surgical History: Yes Surgery Procedure, Year, and Place: 2 [id number]. HERNIA REPAIR-[facility],. TUBAL LIGATION ,. ANGIOPLASTY W/O STENTS veins left leg. RT LOWER AND 1/2 OF RT MIDDLE LOBEECTOMY 2014. 04/25/16 - GASTRIC SLEEVE - - Family History Known Family History: Positive: Non-Contributory - Social History Alcohol Use: Occasionally Substance Use Type: None Smoking Status (MU): Never Smoked Tobacco Have You Smoked in the Last Year: No - Immunization History Most Recent Influenza Vaccination: 02/2018 Most Recent Tetanus Shot: UNKNOWN Most Recent Pneumonia Vaccination: NONE Review of Systems All Other Systems Reviewed And Are Negative: Yes Constitutional: Positive: Fever, Fatigue ENT: Positive: Sore Throat, Ear Ache, Sinus Congestion Respiratory: Positive: Negative Cardiovascular: Positive: Negative Physical Exam Triage Information Reviewed: Yes Appearance: Well-Appearing, No Pain Distress, Well-Nourished Vital Signs: Initial Vital Signs Temp 99.2 F 10/01/18 09:54 Pulse 80 10/01/18 09:54 Resp 16 10/01/18 09:54 BP 139/78 10/01/18 09:54 Pulse Ox 100 10/01/18 09:54 Laboratory Tests 10/01/18 10:40 Group A Strep Rapid Positive A Eyes: Positive: Conjunctiva Clear ENT: Positive: Hearing grossly normal, Pharyngeal erythema, TMs normal - FLUID BEHIND RIGHT TM, Other - NO TONSILS Neck: Positive: Supple, Tenderness @ - SPFL CERVICAL LAD, Enlarged Nodes @ - SPFL CERVICAL LAD Respiratory Exam: Normal Cardiovascular Exam: Normal Abdomen Description: Positive: Soft Musculoskeletal: Positive: No Edema Neurological: Positive: Alert Psychological: Positive: Age Appropriate Behavior Skin: Negative: Rashes Throat Pain/Nasal Course/Dx - Differential Dx/Diagnosis Provider Diagnosis: Strep pharyngitis Discharge - Sign-Out/Discharge Documenting (check all that apply): Patient Departure All imaging exams completed and their final reports reviewed: No Studies - Discharge Plan Condition: Stable Disposition: HOME Prescriptions: Azithromycin 500 mg PO DAILY #5 tab Patient Education Materials: Strep Throat (ED) Referrals: Marsha Marsh MD [Primary Care Provider] - If Needed Additional Instructions: STREP POSITIVE. TAKE ANTIBIOTICS FOR THE FULL 5 DAYS. OTC CHLORASEPTIC OR CEPACOL LOZENGES AND/OR IBUPROFEN FOR SORE THROAT NEEDED ONCE SYMPTOMS RESOLVED - NEW TOOTHBRUSH DO NOT SHARE FOOD, DRINK, UTENSILS - Billing Disposition and Condition Condition: STABLE Disposition: Home
== END 2018-10-01 10:59 | disposition home or self-care (01) ==
LOC: UCEAST 09:43
DX: J02.0 Streptococcal pharyngitis (principal); J45.909 Unspecified asthma, uncomplicated; Z85.118 Personal history of other malignant neoplasm of bronchus and lung; Z88.6 Allergy status to analgesic agent; Z91.040 Latex allergy status; Z88.0 Allergy status to penicillin; Z91.018 Allergy to other foods; Z91.048 Other nonmedicinal substance allergy status
CPT/HCPCS: 87651; 99211; G0463

== ENCOUNTER 2018-12-19 17:11 | Emergency (ER) | payer BC ==
[2018-12-19 17:36] VITALS: BP 135/74
--- NOTE | 2018-12-20 07:09 | UC ---
- Progress Note Progress Note: Patient Name: TJ LEIGH Medical Record#: [id number] Ordering Physician: Stacie Winn [employer] CONSULTANT Acct.#: [id number] : 1960 Age: 58 Sex: F Location: [facility] Exam Date: 12/19/18 1800 ADM Status: REG ER Order Information: CHEST PA & LAT 2 VWS Accession Number: [id number] CPT: 59317 Indication: Cough history of lung cancer. 2 views the chest are reviewed. Chronic pleural changes are noted in the right costophrenic angle. Left lung field is clear. IMPRESSION: Likely chronic pleural changes. No definite pneumonia is noted. No changes noted since March 21, 2018. <Electronically signed by Thais Strickland MD in OV> 12/19/181830 Dictated By: Thais Strickland MD Dictated Date/Time: 12/19/181830 Transcribed Date/Time: 12/19/181828 Copy to: CC:Marsha Marsh MD; Wilfredo Blackmon MD; Stacie Winn NP [facility] Imaging [facility] Department [address] [address] ph ([phone]) ph ([phone]) ph ([phone]) This report is only to be considered final once signed by the Provider(s) as displayed in the "<Electronically Signed by >" field (s). Absence of a signature indicates the report is in a draft status and still needs to be finalized. In the event this document was created by someone other than the signing Provider, the individual initiating the document will be listed in the "Entered by:" or "Dictated by:" dalton. 1 of 1 Course/Dx - Diagnoses Provider Diagnoses: Ear ache Discharge - Sign-Out/Discharge Documenting (check all that apply): Post-Discharge Follow Up All imaging exams completed and their final reports reviewed: Yes - Discharge Plan Condition: Fair Disposition: HOME Patient Education Materials: Earache (ED) Referrals: Marsha Marsh MD [Primary Care Provider] - Additional Instructions: May take Tylenol every 4 hours as needed for pain. Follow-up with your primary care provider in 3 or 4 days if no improvement. - Billing Disposition and Condition Condition: FAIR Disposition: Home
== END 2018-12-19 19:00 | disposition home or self-care (01) ==
LOC: UCEAST 17:11
DX: R05 Cough (principal); H92.09 Otalgia, unspecified ear; Z85.118 Personal history of other malignant neoplasm of bronchus and lung
CPT/HCPCS: 71046; 87651; 99211; G0463

== ENCOUNTER 2021-07-25 05:51 | Inpatient (IN) ==
[2021-07-25] MEDS ORDERED: Buffered Lidocaine 1% SYRIN 1 ml INTRADERM ONE (06:00)
[2021-07-25] MEDS ORDERED: Lactated Ringers 1000 ml BAG 1,000 ML IV SCH ×2 (06:00→11:00)
[2021-07-25] MEDS ORDERED: Clindamycin 900 MG/D5W BAG 900 MG/50 ML BAG IVPB ONE (06:06)
[2021-07-25] MEDS ORDERED: Lidocaine 2% PF 5 ML VIAL ONE (06:57)
[2021-07-25] MEDS ORDERED: Propofol 10 MG/ML 20 ML BTL ONE (06:57)
[2021-07-25] MEDS ORDERED: Scopolamine 1 mg/72hr PATCH ONE (06:59)
[2021-07-25] MEDS ORDERED: Ketamine HCL 50 mg/ml 10 ml VIAL (500 MG) ONE (07:03)
[2021-07-25] MEDS ORDERED: Midazolam 2 mg/2 ml VIAL 1 mg/ml 2 ml VIAL (2 mg) ONE ×2 (07:03→08:13)
[2021-07-25] MEDS ORDERED: Bupivacaine 0.5% SDV PF 30ML VIAL ONE (07:07)
[2021-07-25] MEDS ORDERED: ROPIVACAINE 5 MG/ML 30 ML BTL (0.5%) ONE (07:23)
[2021-07-25] MEDS ORDERED: Dexamethasone IV 4 MG/ML VIAL 1 ml VIAL ONE ×2 (08:36→11:56)
[2021-07-25] MEDS ORDERED: Ondansetron 4 mg VIAL 2 MG/ML 2 ml VIAL ONE ×2 (08:36→11:56)
[2021-07-25] MEDS ORDERED: Phenylephrine 40 mcg/mL 10mL (400mcg) SYRINGE ONE (08:51)
[2021-07-25] MEDS ORDERED: Acetaminophen IV 1 GM/100ML 100 ML IV ONE ×2 (09:14→11:56)
[2021-07-25] MEDS ORDERED: Acetaminophen IV 1 GM/100ML 100 ML IV PRN (09:17)
[2021-07-25] MEDS ORDERED: DiMENhydriNATE IV 50 mg/ml 1 ml VIAL IV PUSH PRN (09:17)
[2021-07-25] MEDS ORDERED: Naloxone 0.4 mg VIAL 0.4 mg/ml 1 ml VIAL IV PRN (09:17)
[2021-07-25] MEDS ORDERED: diPHENhydraMINE IV 50 MG/ML 1 ml VIAL (BENADRYL) IV PRN ×2 (09:17→10:37)
[2021-07-25] MEDS ORDERED: HYDROmorphone 1 MG/1 ML SYRINGE IV PRN (09:17)
[2021-07-25] MEDS ORDERED: Ondansetron 4 mg VIAL 2 MG/ML 2 ml VIAL IV PRN ×2 (09:17→10:37)
[2021-07-25] MEDS ORDERED: fentaNYL 100 mcg/2 ml 50 MCG/ML VIAL IV PRN (09:17)
[2021-07-25] MEDS ORDERED: Lactulose 30 ml UDC PO PRN (10:37)
[2021-07-25] MEDS ORDERED: Ondansetron ODT 4 mg TAB 4 MG TAB PO PRN (10:37)
[2021-07-25] MEDS ORDERED: Magnesium Hydroxide LIQ 30 ML UDC PO PRN (10:37)
[2021-07-25] MEDS ORDERED: diPHENhydraMINE 25 mg TAB PO PRN (10:37)
[2021-07-25] MEDS: Clindamycin 600 MG/D5W BAG 600 MG/50 ML BAG IV SCH (16:01)
[2021-07-25] MEDS: Magnesium Hydroxide LIQ 30 ML UDC PO SCH (20:52)
[2021-07-26 06:00] LABS: Hematocrit 31 % (35-47); Hemoglobin 10.2 g/dL (12.0-16.0); Platelet Count 207 10^3/uL (150-450)
[2021-07-26 06:36] LABS: Calcium 8.5 mg/dL (8.6-10.3); Potassium 4.3 mmol/L (3.5-5.0)
[2021-07-26 06:41] LABS: eGFR CKD-EPI 93.5 (>60)
[2021-07-26] MEDS: Clindamycin 600 MG/D5W BAG 600 MG/50 ML BAG IV SCH ×2 (07:46)
[2021-07-26] MEDS: Magnesium Hydroxide LIQ 30 ML UDC PO SCH (07:58)
[2021-07-26] MEDS ORDERED: Vitamin THERAPEUTIC TAB PO SCH (09:00)
[2021-07-26 11:12] VITALS: BP 118/74
== END 2021-07-26 13:00 | disposition home health service (06) | DRG 301 ==
LOC: SSU 05:51 → OR 05:51 → SSU 14:38
PROVIDERS: ADMIT Orthopaedic Surgery Adult Reconstructive Orthopaedic Surgery; ATTEND Orthopaedic Surgery Adult Reconstructive Orthopaedic Surgery

== ENCOUNTER 2023-11-05 06:22 | Inpatient (IN) ==
[~2023-11-05 06:22] MED LIST changes: +Metoclopramide 5 MG/ML VIAL (10 mg) IV PRN; +NS 0.45% 1000 ml BAG 1,000 ML IV SCH; +Naloxone 0.4 mg VIAL 0.4 mg/ml 1 ml VIAL IV PRN; +Ondansetron 4 mg VIAL 2 MG/ML 2 ml VIAL IV PRN; -Tranexamic Acid 1,000 MG in NS 0.9% 50 ML* (outpatient use) IV SCH
[2023-11-05 07:19] LABS: Rapid COVID-19 Molecular Undetected (Undetected)
[2023-11-05] MEDS ORDERED: Tranexamic Acid 1 GM/100ML BAG 2,000 MG/200 ML BAG IV ONE (07:32)
[2023-11-05] MEDS ORDERED: Scopolamine 1 mg/72hr PATCH ONE (07:32)
[2023-11-05] MEDS ORDERED: ceFAZolin 2 GM PREMIX 2 GM/50 ML BAG ONE (07:32)
[2023-11-05] MEDS: Buffered Lidocaine 1% SYRIN 1 ml INTRADERM ONE (07:44)
[2023-11-05] MEDS: Scopolamine 1 mg/72hr PATCH TRANSDERM ONE (07:44)
[2023-11-05] MEDS: Lactated Ringers 1000 ml BAG 1,000 ML IV SCH ×2 (07:44→15:10)
[2023-11-05] MEDS ORDERED: ROPIVACAINE 5 MG/ML 30 ML BTL (0.5%) ONE (07:54)
[2023-11-05] MEDS ORDERED: Ondansetron 4 mg VIAL 2 MG/ML 2 ml VIAL ONE (08:21)
[2023-11-05] MEDS ORDERED: Dexamethasone IV 4 MG/ML VIAL 1 ml VIAL ONE (08:21)
[2023-11-05] MEDS ORDERED: fentaNYL 250 mcg/5 ml 50 MCG/ML 5 ml VIAL (250 MCG) ONE (08:21)
[2023-11-05] MEDS ORDERED: Rocuronium 50 mg VIAL 10 mg/ml 5 ml VIAL (50 mg) ONE (08:21)
[2023-11-05] MEDS ORDERED: Lidocaine 2% PF 5 ML VIAL ONE (08:21)
[2023-11-05] MEDS ORDERED: Midazolam 2 mg/2 ml VIAL 1 mg/ml 2 ml VIAL (2 mg) ONE (08:21)
[2023-11-05] MEDS ORDERED: Propofol 10 MG/ML 20 ML BTL ONE (08:21)
[2023-11-05] MEDS ORDERED: Phenylephrine 40 mcg/mL 10mL (400mcg) SYRINGE ONE (10:12)
[2023-11-05] MEDS ORDERED: Metoclopramide 5 MG/ML VIAL (10 mg) ONE (10:19)
[2023-11-05] MEDS ORDERED: Phenylephrine IV 10 MG/ML 1 ml VIAL ONE (10:26)
[2023-11-05] MEDS ORDERED: Lactulose 30 ml UDC PO PRN (12:02)
[2023-11-05] MEDS ORDERED: Ondansetron ODT 4 mg TAB 4 MG TAB PO PRN (12:02)
[2023-11-05] MEDS ORDERED: Magnesium Hydroxide LIQ 30 ML UDC PO PRN (12:02)
[2023-11-05] MEDS ORDERED: Morphine 2 MG/ML SYRINGE IV PRN (12:02)
[2023-11-05] MEDS ORDERED: Calcium Carb (TUMS) 500 mg CHEW TAB PO PRN (12:02)
[2023-11-05] MEDS ORDERED: fentaNYL 100 mcg/2 ml 50 MCG/ML VIAL ONE (12:40)
[2023-11-05] MEDS: fentaNYL 100 mcg/2 ml 50 MCG/ML VIAL IV PRN (12:42)
[2023-11-05] MEDS: Acetaminophen IV 1 GM/100ML 1,000 MG/100 ML BAG IV ONE (14:23)
[2023-11-05] MEDS ORDERED: Mometasone/Formoter 200/5 MDI INH PRN (15:02)
[2023-11-05] MEDS: ceFAZolin 2 GM PREMIX 2 GM/50 ML BAG IVPB SCH (17:18)
[2023-11-05] MEDS ORDERED: LevoCETirizine 5 mg TAB (NF) PO SCH (21:00)
[2023-11-05] MEDS: Magnesium Hydroxide LIQ 30 ML UDC PO SCH (21:25)
[2023-11-06 07:24] LABS: Hemoglobin 9.8 g/dL (11.5-14.3); Mean Platelet Volume 10.1 fL (7.5-11.2); Platelet Count 232 10^3/uL (150-450)
[2023-11-06] MEDS: Vitamin THERAPEUTIC TAB PO SCH (08:37)
[2023-11-06] MEDS: PTO: LevoCETirizine 5 mg TAB (NF) PO SCH (08:38)
[2023-11-06] MEDS: Pneumococcal 20-Valent Conj 0.5 ML SYR Vaccine IM ONE (08:47)
[2023-11-06] MEDS: Ondansetron 4 mg VIAL 2 MG/ML 2 ml VIAL IV PRN (09:39)
[2023-11-06 10:00] LABS: Calcium 8.4 mg/dL (8.6-10.3); Potassium 4.3 mmol/L (3.5-5.0); eGFR CKD-EPI 63.3 (>60)
[2023-11-06 17:58] VITALS: BP 118/52
== END 2023-11-06 14:35 | disposition home or self-care (01) | DRG 301 ==
LOC: SSU 06:22 → OR 06:22
PROVIDERS: ADMIT Orthopaedic Surgery Adult Reconstructive Orthopaedic Surgery; ATTEND Orthopaedic Surgery Adult Reconstructive Orthopaedic Surgery